=== PATIENT | female | born 1960 | race Caucasian/White ===

== ENCOUNTER → 2017-12-24 09:52 | Outpatient (CLI) | payer OTHER, SELFPAY ==
[2017-12-24 11:12] LABS: Free T3 3.1 pg/mL (2.18-3.98); T4 Free Direct 0.89 ng/dL (0.76-1.46); Thyroid Stim Hormone (TSH) 0.01 uIU/mL (0.358-3.74)
[2017-12-27 15:12] LABS: HPV Reflexed? NOT INDICATED
== END ==
PROVIDERS: Visit Provider Obstetrics & Gynecology
DX: Z12.4 Encounter for screening for malignant neoplasm of cervix (principal); R53.83 Other fatigue; Z12.72 Encounter for screening for malignant neoplasm of vagina
CPT/HCPCS: 36415; 84439; 84443; 84481; 88175; G0145

== ENCOUNTER 2018-01-27 20:26 | Observation (INO) | payer OTHER, SELFPAY ==
[2018-01-27] VITALS (9 sets, daily range): BP systolic 135–164; BP diastolic 74–98; PULSE 51–66; RESP 15–22; TEMP 36.4–36.7; O2SAT 95–99; BMI 31.7; BMI 29.7; BMI 29.8
--- NOTE | 2018-01-27 20:57 | EKG12_ITS ---
Test Reason : LEFT SIDED NUMBNESS Blood Pressure : / mmHG Vent. Rate : 062 BPM Atrial Rate : 062 BPM P-R Int : 168 ms QRS Dur : 104 ms QT Int : 408 ms P-R-T Axes : 033 025 047 degrees QTc Int : 414 ms Normal sinus rhythm Nonspecific ST abnormality Abnormal ECG Confirmed by MARIA DE JESUS POON, PERNELL ([id number]), editor sound SOLEDAD LOZA ([id number]) on 01/29/2018 3:00:14 PM Referred By: QUITA CULVER Confirmed By:PERNELL RPETTY MD
--- NOTE | 2018-01-27 20:57 | CT_ITS ---
STUDY: CT BRAIN WITHOUT CONTRAST REASON FOR EXAM: Female, 57 years old. Paresthesia RADIATION DOSAGE (If Supplied By Facility): CTDIvol = ( 44.99 ) mGy, DLP = ( 796.11 ) mGycm TECHNIQUE: Transaxial CT imaging of the brain was performed without administration of intravenous contrast material. Individualized dose optimization techniques were used for this CT. COMPARISON: None. FINDINGS: Normal soft tissue structures. Normal calvarium. Normal size ventricles and extra-axial spaces for the patient's age. Normal white matter tracts of the cerebral hemispheres. Normal basal ganglia and thalami. Normal brainstem. Normal cerebellum. There is no intracranial hemorrhage. There are no findings of an acute ischemic infarction. Normal visualized paranasal sinuses. CT/Brain/Head without Contrast IMPRESSION: Normal unenhanced CT scan of the brain. If acute infarct is clinically suspected, MRI may be helpful for further evaluation at this time. Electronically Signed: Jovany Pérez MD at 21:45 EDT , Service support ,
--- NOTE | 2018-01-27 20:57 | ED.VISSUMM ---
- ER Visit Summary Date of Service: 01/27/18 Chief Complaint: Paresthesias History of Present Illness: The patient is a 57 F sudden left upper and lower lip paresthesia at 6 [address] Symptoms resolved, went home and return. At 7 PM started having hand and feet paresthesias in the left side. Symptoms Subsided on arrival to the ED. No headache or visual changes. No hemiparesis. No chest pains or shortness of breath. No stroke history. No visual changes. No aspirin therapy. Patient states she was started on hormone replacement up Prempro a month ago for hot flashes. No family history of clotting disorders. Physical Examination: General: Alert and oriented ?3, no acute distress HEENT: Normocephalic, atraumatic. Moist mucosa membranes Neck: supple, nontender. Cardiovascular: Regular rate and rhythm, no murmurs Respiratory: Normal breath sounds, symmetric, no distress Abdomen: Soft, nontender, nondistended Extremities: Nontender, no edema, pulses intact ?4 Neuro: no focal neurological deficits. NIH currently 0. Test Results: EKG: Sinus rate of 62, no ST or T-wave changes. Blood glucose 119. Hemoglobin 0.7. Creatinine 0.88. INR 0.9. Troponin negative. CT head no acute process. Emergency Department Course and Treatment: Patient symptoms resolved. Bat B workup initiated. Results were negative. Patient remains asymptomatic. Patient recently placed on hormone therapy puts her at risk for potential clots. Will discuss with hospitalist for admission for stroke rule out. Reevaluation, symptoms did not return. Treatment Plan: [] Disposition: Admission Impression: Transient left facial and left-sided paresthesia This note was generated with [employer] dictation software. It may contain incorrect words, spelling, and punctuation that were not noted in review of the chart prior to signing ED Disposition - Plan for ED Patient: Disposition: Acute Care Hospital [facility] Chief Complaint: Numb/Ting Diagnosis: Transient paresthesias Referrals: NOT,DEFINED [NON-STAFF] -
[2018-01-27 21:16] LABS: Bedside Glucose 119 mg/dL (70-110)
[2018-01-27 21:18] LABS: Absolute Lymphocyte Count 3.49 X10^3/ul (0.83-4.51); Absolute Neutrophil Count 4.7 X10^3/uL (2.0-7.7); Basophil# 0.02 X10^3/uL; Basophil% 0.2 % (0-1); Eosinophil# 0.26 X10^3/uL; Eosinophils% 2.8 % (0-5); Hematocrit 35.4 % (37-47); Hemoglobin 11.7 g/dl (12.0-15.0); Lymphocyte # 3.49 X10^3/ul (4.0); Lymphocyte % 37.4 % (19-41); Mean Corp Hgb Conc 33.1 g/gl (32-36); Mean Corpuscular Volume 90.8 fL (81-99); Mean Platelet Vol. 9.5 fl (6.2-12.0); Monocyte# 0.84 X10^3/uL; Neutrophil % 50.4 % (47-70); Platelet Count 360 K/mm3 (150-450); RBC Distribution Width CV 12.4 % (11.6-14.6); RBC Distribution Width SD 40.7 fl (35.1-43.9); White Blood Count 9.3 K/mm3 (4.4-11.0)
[2018-01-27 21:24] LABS: International Normalized Ratio 0.9; POSITIVE COUNT NO; POSITIVE DIFFERENTIAL NO; POSITIVE MORPHOLOGY NO; Partial Thromboplast Time 30.2 Seconds (24.1-36.2); Prothrombin Time (Protime)PT. 12.3 SECONDS (11.7-14.9)
[2018-01-27 21:35] LABS: Anion Gap 8 (5-15); BUN 24 mg/dL (7-18); BUN/Creat Ratio 27.4 RATIO (10-20); Calcium,Total 8.8 mg/dL (8.5-10.1); Chloride 112 mmol/L (98-107); Creatinine, Serum 0.88 mg/dL (0.55-1.02); EST Glomerular Filtration Rate 70 mL/min (>60); Est Glom Filt Rate - Afr Amer 85 mL/min (>60); Estimated Creatinine Clearance 59.44 ml/min; Glucose 114 mg/dL (74-106); Potassium 3.9 mmol/L (3.5-5.1); Sodium Level 143 mmol/L (136-145)
--- NOTE | 2018-01-27 22:07 | PCM.HP.STD ---
Problem List (1) HTN (hypertension) Status: Chronic Qualifiers: Hypertension type: essential hypertension Qualified Code(s): I10 - Essential (primary) hypertension (2) GERD (gastroesophageal reflux disease) Status: Chronic Qualifiers: Esophagitis presence: esophagitis presence not specified Qualified Code(s): K21.9 - Gastro-esophageal reflux disease without esophagitis (3) Anxiety Status: Chronic (4) Insomnia Status: Chronic Qualifiers: Insomnia type: unspecified Qualified Code(s): G47.00 - Insomnia, unspecified (5) Chronic back pain Status: Chronic Qualifiers: Back pain location: back pain in unspecified location Back pain laterality: unspecified Qualified Code(s): M54.9 - Dorsalgia, unspecified; G89.29 - Other chronic pain (6) Obesity (BMI 30.0-34.9) Status: Acute (7) TIA (transient ischemic attack) Status: Acute Qualifiers: Transient cerebral ischemia type: unspecified Qualified Code(s): G45.9 - Transient cerebral ischemic attack, unspecified History of Present Illness Date of Admission: 01/27/18 Chief Complaint: L sided paresthesias 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 She does not take a daily baby ASA. She notes her manager file recently started her on premarin for hot flashes ~ 1 week prior. In the ED work-up included T 97.6, HR 66, BP 144/98, RR 16, 99% on RA, CBC w/ WBC 9.3, Hgb 11.7, Plts 360 without shift, normal coags, BMP w/ Chl 112, BUN/Cr 24/0.88, glucose 114, trop < 0.02, CT head without acute findings, EKG w/ SR. Past Medical History Past Medical History (Chronic Problems): Chronic Problems (Last Updated 10/07/17 @ 10:48 by Claudette Brothers) HTN (hypertension) (Chronic) GERD (gastroesophageal reflux disease) (Chronic) Anxiety (Chronic) Insomnia (Chronic) Chronic back pain (Chronic) Allergies No Known Allergies Allergy (Unverified 01/27/18 20:27) Home Medications: Ambulatory Orders Medication Instructions Recorded lorazepam 1 mg tablet 1 mg PO BID 10/07/17 trazodone 50 mg tablet 100 mg PO QHS PRN 10/07/17 Omeprazole [Prilosec] 20 mg PO DAILY 01/27/18 Surgical History: - - Cholecystectomy, bilateral tubal ligation, right foot surgery. Psychiatric History: Anxiety, Depression PARTS PROCESSOR History: No pertinent PARTS PROCESSOR history Lives: Spouse/ Significant Other Smoking Status: Former smoker - Quit approximately 7 years prior, [id number] history. Tobacco Use: Non-smoker Alcohol: None Drugs: None - *Family History Maternal History Items: - - Maternal family history of heart disease, hypertension, hypothyroidism. Paternal History Items: - - Paternal family history of suspected cerebral aneurysm in his 40s. Review of Systems Constitutional: Denies: Chills, Fever, Weight Change HEENT: Denies: Head Aches, Sinus Congestion, Sinus Drainage Cardiovascular: Denies: Chest Pain, Palpitations Respiratory: Denies: Cough, Shortness of breath at rest, Sputum production Gastrointestinal: Denies: Abdominal Pain, Nausea, Vomiting Genitourinary: Denies: Dysuria Gynecological: Reports: - - Hot flashes. Musculoskeletal: Reports: Back Pain. Denies: Joint Pain, Joint Tenderness Skin: Denies: Rash, Wounds Neurological: Denies: Numbness, Tingling, Focal weakness Psychiatric: Reports: Anxiety, Depression, - - Insomnia.. Denies: Homicidal Ideations, Suicidal Ideations Hematologic/ Lymphatic: Denies: Easy Bruising, Easy Bleeding VTE Information - Inpt Only VTE Present on Admission: No VTE Mechan Device Prophylaxis: SCD's VTE Pharm Prophylaxis ordered?: Yes Patient Problems: Active and Suspected Problems (Last Updated 10/07/17 @ 10:48 by Claudette Brothers) Obesity (BMI 30.0-34.9) (Acute) TIA (transient ischemic attack) (Acute) Subjective: Seated upright in the ED bed, NAD, NIHSS 0. Objective: Physical Examination: General: awake, alert, oriented x 3 and cooperative, seated upright in the ED bed in no apparent distress. Skin: normal color, turgor, no icterus, cyanosis. HEENT: AT/NC, EOMI, PERRLA, MMM, no carotid bruits or JVD noted. Lungs: CTA bilaterally, moderate effort, mild decrease BL bases, no rales, ronchi or wheezing. Heart: Regular rate and rhythm; no gallop, rub audible. Abdomen: soft, NTTP, ND, normal BS, no HSM. Extremities: no cyanosis, clubbing, or edema. Neurological: patient awake, alert, oriented x 3; cognitive function intact; pupils equally reactive to light and accomodation; cranial nerves II-XII grossly normal, moving all 4 extremities, no focal deficits, strength preserved, sensation intact, FTN and HTS intact, negative babinski. Psychiatric: affect appears normal, no acute evidence of depressive or anxiety feelings. - Physical Exam Vital Signs Temp Pulse Resp BP Pulse Ox 97.6 F L 63 16 140/74 H 97 01/27/18 20:30 01/27/18 21:54 01/27/18 21:54 01/27/18 21:54 01/27/18 21:54 Oxygen Delivery Method Room Air Weight: 184 lb 15.485 oz Body Mass Index (BMI) 31.7 Finger Stick Blood Glucose 119 Laboratory Tests Past 24 Hrs 01/27/18 01/27/18 01/27/18 20:42 20:42 20:42 WBC 9.3 RBC 3.90 L Hgb 11.7 L Hct 35.4 L MCV 90.8 MCH 30.0 MCHC 33.1 RDW 12.4 RDW Differential 40.7 Plt Count 360 MPV 9.5 Immature Gran % (Auto) 0.200 Neut % (Auto) 50.4 Lymph % (Auto) 37.4 Sabine % (Auto) 9.0 Eos % (Auto) 2.8 Baso % (Auto) 0.2 Absolute Neuts (auto) 4.7 Absolute Lymphs (auto) 3.49 Total Counted Not Reportable PT 12.3 INR 0.9 APTT 30.2 Sodium 143 Potassium 3.9 Chloride 112 H Carbon Dioxide 23.0 Anion Gap 8 BUN 24 H Creatinine 0.88 Estim Creat Clear Calc 59.44 Est GFR (MDRD) Af Amer 85 Est GFR (MDRD) Non-Af 70 BUN/Creatinine Ratio 27.4 H Glucose 114 H Calcium 8.8 Troponin I < 0.02 POC Glucose 01/27/18 21:06 POC Glucose 119 H Assessment/Plan Active and Suspected Problems (Last Updated 10/07/17 @ 10:48 by Claudette Brothers) Obesity (BMI 30.0-34.9) (Acute) TIA (transient ischemic attack) (Acute) 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 (1) L sided paresthesias concerning for TIA/CVA: In the ED work-up included unremarkable labs, CT head without acute findings, EKG SR. Will admit to PCU, will obtain MRI Brain, MRA Head and Neck, ECHO, PT/OT/Speech/Nutrition evaluation per protocol. Will monitor BP as not on regimen currently, will start ACEI low dose if remains above goal 140/90, initiate daily baby ASA, add statin pending AM FLP, fall precautions. Mag and TSH pending. Discontinue recently started premarin. HgBA1c pending as noted mildly elevated glucose. (2) Hypertension: Noted history, not on regimen. Will monitor BP as not on regimen currently, will start ACEI low dose if remains above goal 140/90, PRN hydralazine. (3) Anxiety and Depression, Insomnia: Continue home ativan regimen, given depressive history also may benefit from consideration SSRI/SNRI, continue home PRN q HS trazodone. (4) Chronic Back Pain: Position changes, fall precautions. (5) Obesity: Weight loss and lifestyle changes encouraged. (6) GERD: Famotidine. (7) Mild Hyperglycemia: Mildly elevated BS, pending HgbA1c. (8) DVT Prophylaxis: SCDs, lovenox. Code Visit OBSV E&M: 06239 Initial observation care L3
--- NOTE | 2018-01-27 22:17 | HP.PCM_ITS ---
Problem List (1) HTN (hypertension) Status: Chronic Qualifiers: Hypertension type: essential hypertension Qualified Code(s): I10 - Essential (primary) hypertension (2) GERD (gastroesophageal reflux disease) Status: Chronic Qualifiers: Esophagitis presence: esophagitis presence not specified Qualified Code(s) : K21.9 - Gastro-esophageal reflux disease without esophagitis (3) Anxiety Status: Chronic (4) Insomnia Status: Chronic Qualifiers: Insomnia type: unspecified Qualified Code(s): G47.00 - Insomnia, unspecified (5) Chronic back pain Status: Chronic Qualifiers: Back pain location: back pain in unspecified location Back pain laterality : unspecified Qualified Code(s): M54.9 - Dorsalgia, unspecified; G89.29 - Other chronic pain (6) Obesity (BMI 30.0-34.9) Status: Acute (7) TIA (transient ischemic attack) Status: Acute Qualifiers: Transient cerebral ischemia type: unspecified Qualified Code(s): G45.9 - Transient cerebral ischemic attack, unspecified History of Present Illness Date of Admission: 01/27/18 Chief Complaint: L sided paresthesias 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 She does not take a daily baby ASA. 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 In the ED work-up included T 97.6, HR 66, BP 144/98, RR 16, 99% on RA, CBC w/ WBC 9.3, Hgb 11.7, Plts 360 without shift, normal coags, BMP w/ Chl 112, BUN/Cr 24/0.88, glucose 114, trop < 0.02, CT head without acute findings, EKG w/ SR. Past Medical History Past Medical History (Chronic Problems): Chronic Problems (Last Updated 10/07/17 @ 10:48 by Claudette Brothers) HTN (hypertension) (Chronic) GERD (gastroesophageal reflux disease) (Chronic) Anxiety (Chronic) Insomnia (Chronic) Chronic back pain (Chronic) Allergies No Known Allergies Allergy (Unverified 01/27/18 20:27) Home Medications: Ambulatory Orders Medication Instructions Recorded lorazepam 1 mg tablet 1 mg PO BID 10/07/17 trazodone 50 mg tablet 100 mg PO QHS PRN 10/07/17 Omeprazole [Prilosec] 20 mg PO DAILY 01/27/18 Surgical History: - - Cholecystectomy, bilateral tubal ligation, right foot surgery. Psychiatric History: Anxiety, Depression DIRECTOR REGULATORY COMPLIANCE History: No pertinent DIRECTOR REGULATORY COMPLIANCE history Lives: Spouse/ Significant Other Smoking Status: Former smoker - Quit approximately 7 years prior, [id number] history. Tobacco Use: Non-smoker Alcohol: None Drugs: None - *Family History Maternal History Items: - - Maternal family history of heart disease, hypertension, hypothyroidism. Paternal History Items: - - Paternal family history of suspected cerebral aneurysm in his 40s. Review of Systems Constitutional: Denies: Chills, Fever, Weight Change HEENT: Denies: Head Aches, Sinus Congestion, Sinus Drainage Cardiovascular: Denies: Chest Pain, Palpitations Respiratory: Denies: Cough, Shortness of breath at rest, Sputum production Gastrointestinal: Denies: Abdominal Pain, Nausea, Vomiting Genitourinary: Denies: Dysuria Gynecological: Reports: - - Hot flashes. Musculoskeletal: Reports: Back Pain. Denies: Joint Pain, Joint Tenderness Skin: Denies: Rash, Wounds Neurological: Denies: Numbness, Tingling, Focal weakness Psychiatric: Reports: Anxiety, Depression, - - Insomnia.. Denies: Homicidal Ideations, Suicidal Ideations Hematologic/ Lymphatic: Denies: Easy Bruising, Easy Bleeding VTE Information - Inpt Only VTE Present on Admission: No VTE Mechan Device Prophylaxis: SCD's VTE Pharm Prophylaxis ordered?: Yes Patient Problems: Active and Suspected Problems (Last Updated 10/07/17 @ 10:48 by Claudette Brothers) Obesity (BMI 30.0-34.9) (Acute) TIA (transient ischemic attack) (Acute) Subjective: Seated upright in the ED bed, NAD, NIHSS 0. Objective: Physical Examination: General: awake, alert, oriented x 3 and cooperative, seated upright in the ED bed in no apparent distress. Skin: normal color, turgor, no icterus, cyanosis. HEENT: AT/NC, EOMI, PERRLA, MMM, no carotid bruits or JVD noted. Lungs: CTA bilaterally, moderate effort, mild decrease BL bases, no rales, ronchi or wheezing. Heart: Regular rate and rhythm; no gallop, rub audible. Abdomen: soft, NTTP, ND, normal BS, no HSM. Extremities: no cyanosis, clubbing, or edema. Neurological: patient awake, alert, oriented x 3; cognitive function intact; pupils equally reactive to light and accomodation; cranial nerves II-XII grossly normal, moving all 4 extremities, no focal deficits, strength preserved , sensation intact, FTN and HTS intact, negative babinski. Psychiatric: affect appears normal, no acute evidence of depressive or anxiety feelings. - Physical Exam Vital Signs Temp Pulse Resp BP Pulse Ox 97.6 F L 63 16 140/74 H 97 01/27/18 20:30 01/27/18 21:54 01/27/18 21:54 01/27/18 21:54 01/27/18 21:54 Oxygen Delivery Method Room Air Weight: 184 lb 15.485 oz Body Mass Index (BMI) 31.7 Finger Stick Blood Glucose 119 Laboratory Tests Past 24 Hrs 01/27/18 01/27/18 01/27/18 20:42 20:42 20:42 WBC 9.3 RBC 3.90 L Hgb 11.7 L Hct 35.4 L MCV 90.8 MCH 30.0 MCHC 33.1 RDW 12.4 RDW Differential 40.7 Plt Count 360 MPV 9.5 Immature Gran % (Auto) 0.200 Neut % (Auto) 50.4 Lymph % (Auto) 37.4 Dixie % (Auto) 9.0 Eos % (Auto) 2.8 Baso % (Auto) 0.2 Absolute Neuts (auto) 4.7 Absolute Lymphs (auto) 3.49 Total Counted Not Reportable PT 12.3 INR 0.9 APTT 30.2 Sodium 143 Potassium 3.9 Chloride 112 H Carbon Dioxide 23.0 Anion Gap 8 BUN 24 H Creatinine 0.88 Estim Creat Clear Calc 59.44 Est GFR (MDRD) Af Amer 85 Est GFR (MDRD) Non-Af 70 BUN/Creatinine Ratio 27.4 H Glucose 114 H Calcium 8.8 Troponin I < 0.02 POC Glucose 01/27/18 21:06 POC Glucose 119 H Assessment/Plan Active and Suspected Problems (Last Updated 10/07/17 @ 10:48 by Claudette Brothers) Obesity (BMI 30.0-34.9) (Acute) TIA (transient ischemic attack) (Acute) 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 (1) L sided paresthesias concerning for TIA/CVA: In the ED work-up included unremarkable labs, CT head without acute findings, EKG SR. Will admit to PCU, will obtain MRI Brain, MRA Head and Neck, ECHO, PT/OT/Speech/Nutrition evaluation per protocol. Will monitor BP as not on regimen currently, will start ACEI low dose if remains above goal 140/90, initiate daily baby ASA, add statin pending AM FLP, fall precautions. Mag and TSH pending. Discontinue recently started premarin. HgBA1c pending as noted mildly elevated glucose. (2) Hypertension: Noted history, not on regimen. Will monitor BP as not on regimen currently, will start ACEI low dose if remains above goal 140/90, PRN hydralazine. (3) Anxiety and Depression, Insomnia: Continue home ativan regimen, given depressive history also may benefit from consideration SSRI/SNRI, continue home PRN q HS trazodone. (4) Chronic Back Pain: Position changes, fall precautions. (5) Obesity: Weight loss and lifestyle changes encouraged. (6) GERD: Famotidine. (7) Mild Hyperglycemia: Mildly elevated BS, pending HgbA1c. (8) DVT Prophylaxis: SCDs, lovenox. Code Visit OBSV E&M: 14241 Initial observation care L3
--- NOTE | 2018-01-27 22:53 | ECHOD_ITS ---
Reason For Study: TIA/STROKE Procedure This was a 2D Doppler, Color Flow transthoracic echocardiogram. Exam performed portable in patient room. Left Ventricle Normal LV size. Left ventricular systolic function is normal. The estimated ejection fraction is 60 %. No evidence for diastolic dysfunction. No regional wall motion abnormalities noted. Right Ventricle Normal RV size. Normal systolic function. Atria Normal left atrium. Normal right atrium. Bubble contrast study negative for right to left interatrial shunt. Mitral Valve Normal mitral valve. Tricuspid Valve Normal tricuspid valve. Mild (1+) tricuspid valve insufficiency. Pulmonary artery systolic pressure is 33 mmHg. Aortic Valve Normal aortic valve. Trisinus/trileaflet aortic valve. Pulmonic Valve Normal pulmonic valve. Great Vessels Normal aortic root. The pulmonary artery is normal size. Normal inferior vena cava. Pericardium/Pleural No pericardial effusion. Medication Performed a rapid injection of agitated mix of 9 cc saline and 1cc air to assess for atrial septal defect. MMode/2D Measurements & Calculations LVIDd: 4.9 cm IVSd: 1.1 cm Ao root diam: 2.9 cm LVIDs: 2.9 cm LVPWd: 1.0 cm RVDd: 3.6 cm FS: 39.6 % LAV(MOD-bp): 54.6 ml EDV(MOD-sp4): 96.3 ml SV(MOD-sp4): 54.5 ml LAV(MOD-bp) Indexed: 28.9 ml/m2 ESV(MOD-sp4): 41.8 ml LAV(MOD-sp2): 62.0 ml EF(MOD-sp4): 56.6 % LAV(MOD-sp4): 45.6 ml LA A4 area: 18.0 cm2 RA A4 area: 17.0 cm2 Time Measurements MV dec time: 0.27 sec Doppler Measurements & Calculations MV E max abdi: 103.5 cm/sec Lat Peak E' Abdi: 17.9 cm/sec Med Peak E' Abdi: 18.0 cm/sec MV A max abdi: 69.9 cm/sec E/E' lat: 5.8 E/E' med: 5.8 MV E/A: 1.5 Ao V2 max: 210.2 cm/sec LV V1 max: 149.1 cm/sec PA V2 max: 90.4 cm/sec Ao max P.7 mmHg LV V1 max P.9 mmHg TR max abdi: 275.4 cm/sec TR max P.3 mmHg Interpretation Summary Normal LV size. Left ventricular systolic function is normal. The estimated ejection fraction is 60 %. No evidence for diastolic dysfunction. Mild (1+) tricuspid valve insufficiency. Bubble contrast study negative for right to left interatrial shunt. Ordering Physician: Babita Latham Referring Physician: N/A Performed By: Birgit Bush RDCS
[2018-01-27 23:27] LABS: Magnesium 2.1 mg/dL (1.6-2.6); Thyroid Stim Hormone (TSH) 0.03 uIU/mL (0.358-3.74)
[2018-01-27 23:30] LABS: Hemoglobin A1c 5.7 % (4.2-6.3)
[2018-01-27] MEDS: 0.9% Normal Saline 1,000 ML 100 ML IV (23:48)
[2018-01-28] VITALS (12 sets, daily range): BP systolic 105–140; BP diastolic 52–78; PULSE 46–62; RESP 16–18; TEMP 36.4–37; O2SAT 94–97; BMI 29.7
[2018-01-28] MEDS: Aspirin 81 MG TAB.CHEW PO ×2 (00:10→08:15)
[2018-01-28] MEDS: Famotidine 20 MG Tablet PO ×3 (00:10→21:05)
[2018-01-28 06:32] LABS: Hematocrit 32.4 % (37-47); Hemoglobin 10.6 g/dl (12.0-15.0); Mean Corp Hgb Conc 32.7 g/gl (32-36); Mean Corpuscular Hgb 29.9 pg (27.0-32.0); Mean Corpuscular Volume 91.5 fL (81-99); Mean Platelet Vol. 9.3 fl (6.2-12.0); Platelet Count 319 K/mm3 (150-450); RBC Distribution Width CV 12.4 % (11.6-14.6); RBC Distribution Width SD 40.5 fl (35.1-43.9); Red Blood Count 3.54 M/mm3 (4.2-5.4); White Blood Count 5.1 K/mm3 (4.4-11.0)
[2018-01-28 06:35] LABS: Scan Indicated on CBC? Y/N NO
[2018-01-28 06:48] LABS: Anion Gap 8 (5-15); BUN 20 mg/dL (7-18); BUN/Creat Ratio 29.5 RATIO (10-20); Calcium,Total 8.5 mg/dL (8.5-10.1); Chloride 114 mmol/L (98-107); Cholesterol 187 mg/dL (200); Creatinine, Serum 0.68 mg/dL (0.55-1.02); EST Glomerular Filtration Rate 94 mL/min (>60); Est Glom Filt Rate - Afr Amer 114 mL/min (>60); Estimated Creatinine Clearance 76.92 ml/min; Glucose 94 mg/dL (74-106); High Density Lipoprotein 51 mg/dL; Potassium 4.2 mmol/L (3.5-5.1); Sodium Level 144 mmol/L (136-145); Triglycerides 154 mg/dL; Very Low Density Lipoprotein 31 mg/dL (5-40)
[2018-01-28 08:38] LABS: T4 Free Direct 0.87 ng/dL (0.76-1.46); T4 Total, Thyroxin 7.6 ug/dL (4.8-13.9)
--- NOTE | 2018-01-28 10:23 | MRI_ITS ---
MR Brain W/O Contrast INDICATION: CVA, CVA, sudden onset numbness L face, arm , leg COMPARISON: None TECHNIQUE: Multiplanar multisequence MRI examination of the brain without contrast. FINDINGS: There is no evidence of restricted diffusion to suggest acute ischemia/infarction. Ventricular system is normal in size and symmetric. Cortical sulci, sylvian fissures, and basal cisterns are well seen. Cunningham-white matter junction is normal. Midline structures and craniocervical junction are normal. The cerebellopontine angles are normal and symmetric. Periventricular chronic ischemic microvascular white matter changes are minimal. 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 There is no evidence of parenchymal microhemorrhage, mass effect or midline shift, or abnormal extra-axial collection. Flow-voids of the nikolai of [place] vascularity are well seen. There is redemonstration of early confluence of the vertebral arteries to the basilar artery with large caliber of the proximal basilar artery, see MR angiogram report. The paranasal sinuses and mastooid air cells are clear. MRI/Brain without Contrast IMPRESSION: No evidence of acute infarct. Minimal periventricular chronic ischemic microvascular white matter changes. Abnormal appearance of the proximal basilar artery, see MR angiogram report for further detail. at 1336 Reported and signed by: Cassie Kwok MD Electronically Signed: Cassie Kwok MD at 13:34 EDT Tel , Service support ,
--- NOTE | 2018-01-28 10:24 | MRI_ITS ---
MRA Head W/O Contrast INDICATION: CVA, sudden onset numbness L face, arm , leg COMPARISON: None TECHNIQUE: MR angiogram of the [place] and 3-D [id number] technique with 3-D reformatted images. FINDINGS: There is positive flow related signal in the intracranial portions of the internal carotid arteries with symmetric supply to the anterior and middle cerebral arteries and their branching vessels. Posterior circulation demonstrates early confluence of the distal vertebral arteries to the basilar artery resulting in a large caliber proximal basilar artery with focal fenestration. The mid and distal portion of the basilar artery is normal in caliber. Basilar artery gives rise to both posterior cerebral arteries which demonstrate normal flow related signal. The right posterior communicating artery and the anterior communicator are patent. 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 Symmetric supply to anterior, middle, and posterior cerebral arteries without evidence of large vessel occlusion.. at 1332 Reported and signed by: Cassie Kwok MD Electronically Signed: Cassie Kwok MD at 13:30 EDT Tel , Service support ,
--- NOTE | 2018-01-28 10:24 | MRI_ITS ---
MRA Neck W/O Contrast INDICATION: CVA, CVA, sudden onset numbness L face, arm , leg COMPARISON: None TECHNIQUE: MR angiogram of the arterial structures of the neck without contrast and 2-D bxvx-yw-hbjvgk technique with 3-D reformatted images. FINDINGS: The aortic arch and origins of the common and vertebral arteries are not included in the [id number]-jb-[id number]. There is positive flow related signal in the mid and distal common carotid arteries. There are questionable luminal irregularities at the proximal internal carotid arteries with questionable mild luminal narrowing bilaterally, 40% on the left, 50% on the right. This may be artifact due to vessel angulation. The flow related signal in the internal carotid arteries is otherwise normal and symmetric. Posterior circulation demonstrates symmetric vertebral arteries to the level of the skull base. MRI/MRA Neck without Contrast IMPRESSION: Questionable luminal narrowing at the origins of the internal carotid arteries, could be due to vessel angulation (artifact), or arteriosclerotic disease. Consider further evaluation with CTA (CTA head and neck please). at 1339 Reported and signed by: Cassie Kwok MD Electronically Signed: Cassie Kwok MD at 13:38 EDT Tel , Service support ,
[2018-01-28] MEDS: LORazepam 1 MG Tablet PO ×2 (10:41→21:05)
[2018-01-28] MEDS: Enoxaparin 40 MG/0.4 ML Syringe SC (10:43)
[2018-01-28] MEDS: Acetaminophen 325 MG Tablet 650 MG PO ×2 (10:47→21:06)
--- NOTE | 2018-01-28 14:48 | PCM.PROGNOTE ---
Patient Problems: Active and Suspected Problems (Last Updated 10/07/17 @ 10:48 by Claudette Brothers) Obesity (BMI 30.0-34.9) (Acute) TIA (transient ischemic attack) (Acute) Subjective: Chief complaint: Follow-up after admission for TIA. Patient seen and examined. No acute events overnight. Today, she has no more numbness in her left side of her mouth, no numbness or tingling in the left upper or lower extremities. She denies any new symptoms. Vital signs are stable. - Physical Exam General: Alert, Oriented x3, Cooperative, No apparent distress HEENT: Atraumatic, PERRLA, EOMI Oral: Moist Mucosa, No Gingival or Mucosal Lesions/ Ulcerations Neck: Supple, No JVD, Negative Carotid Bruits, Trachea Midline, Thyroid Normal Size and Texture Lungs: Clear to auscultation, No rhonchi, No wheeze, No rales, Diminished Cardiovascular: Regular rate, Regular Rhythm, Normal S1, Normal S2, PMI Normal Abdomen: Bowel Sounds Present, Soft, Non Tender, Non-Distended, No Hepato-splenomegaly Extremities: No clubbing, No cyanosis, No edema Skin: No rashes, No breakdown Lymphatic: No Cervical, Supraclavicular, or Inguinal Adenopathy Neurological: Cranial nerves II-XII grossly intact, Motor Exam 5/5 strength throughout Psych/Mental Status: Normal Affect, Appropriate, Alert and oriented to time, place, person, mood and affect Vital Signs Temp Pulse Resp BP Pulse Ox 98.6 F 46 L 16 117/78 94 01/28/18 10:39 01/28/18 11:20 01/28/18 10:39 01/28/18 10:39 01/28/18 10:39 Oxygen Delivery Method Room Air Weight: 173 lb 8.061 oz Body Mass Index (BMI) 29.7 Intake and Output for Last 24 Hours 01/26/18 01/27/18 01/28/18 23:59 23:59 23:59 Intake Total 1065 / 1065 Balance 1065 / 1065 Laboratory Tests Past 24 Hrs 01/28/18 01/28/18 01/28/18 05:50 05:50 05:50 WBC 5.1 RBC 3.54 L Hgb 10.6 L Hct 32.4 L MCV 91.5 MCH 29.9 MCHC 32.7 RDW 12.4 RDW Differential 40.5 Plt Count 319 MPV 9.3 Sodium 144 Potassium 4.2 Chloride 114 H Carbon Dioxide 22.0 Anion Gap 8 BUN 20 H Creatinine 0.68 Estim Creat Clear Calc 76.92 Est GFR (MDRD) Af Amer 114 Est GFR (MDRD) Non-Af 94 BUN/Creatinine Ratio 29.5 H Glucose 94 Calcium 8.5 Triglycerides 154 Cholesterol 187 LDL Cholesterol 105 VLDL Cholesterol 31 HDL Cholesterol 51 Free T4 0.87 Thyroxine (T4) 7.6 Free T3 pg/dL 3.0 Clinical Impression(s) from Imaging Studies Brain CT 01/27/18 20:57 IMPRESSION: Normal unenhanced CT scan of the brain. If acute infarct is clinically suspected, MRI may be helpful for further evaluation at this time. Electronically Signed: Jovany Pérez MD at 21:45 EDT , Service support , Brain MRI 01/28/18 10:23 IMPRESSION: No evidence of acute infarct. Minimal periventricular chronic ischemic microvascular white matter changes. Abnormal appearance of the proximal basilar artery, see MR angiogram report for further detail. 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 Symmetric supply to anterior, middle, and posterior cerebral arteries without evidence of large vessel occlusion.. at 1331 Reported and signed by: Cassie Kwok MD Electronically Signed: Cassie Kwok MD at 13:30 EDT Tel , Service support , Neck MRA 01/28/18 10:24 IMPRESSION: Questionable luminal narrowing at the origins of the internal carotid arteries, could be due to vessel angulation (artifact), or arteriosclerotic disease. Consider further evaluation with CTA (CTA head and neck please). at 1339 Reported and signed by: Cassie Kwok MD Electronically Signed: Cassie Kwok MD at 13:38 EDT Tel , Service support , Medical Necessity - Tobacco Use Smoking Status: Former smoker Tobacco Use: Non-smoker Assessment/Plan Active and Suspected Problems (Last Updated 10/07/17 @ 10:48 by Claudette Brothers) Obesity (BMI 30.0-34.9) (Acute) TIA (transient ischemic attack) (Acute) This is a 57 years old female patient admitted because of left-sided paresthesias and she is being evaluated for TIA. #1 left side paresthesia/perioral and left upper and lower extremity paresthesia: Initial CT scan brain showed no acute infarction or hemorrhage. Patient symptoms improved. Her vital signs are stable. She is on aspirin and statins. MRI brain showed no evidence of acute infarction. MRA of the head revealed early confluence of the vertebral arteries to basilar artery with large caliber of the proximal basilar artery. CTA of the neck revealed questionable luminal narrowing at the origin of the internal carotid arteries. 2D echocardiogram showed ejection fraction of 60%, no evidence of diastolic dysfunction, no significant valvular disease and negative bubble contrast study for [id number]-[id number] shunt. Plan: Neurology consult. #2 anxiety/depression/insomnia: Continue trazodone and Lorazepam. #3 GERD: Continue Pepcid. #4 DVT prophylaxis: Subcu Lovenox. This note was generated with [employer] software. It may contain incorrect words, spelling, and punctuation that were not noted in checking the note before signing. Code Visit OBSV E&M: 85617 Subsequent observation care L2
--- NOTE | 2018-01-28 14:56 | PN_ITS ---
Patient Problems: Active and Suspected Problems (Last Updated 10/07/17 @ 10:48 by Claudette Brothers) Obesity (BMI 30.0-34.9) (Acute) TIA (transient ischemic attack) (Acute) Subjective: Chief complaint: Follow-up after admission for TIA. Patient seen and examined. No acute events overnight. Today, she has no more numbness in her left side of her mouth, no numbness or tingling in the left upper or lower extremities. She denies any new symptoms. Vital signs are stable. - Physical Exam General: Alert, Oriented x3, Cooperative, No apparent distress HEENT: Atraumatic, PERRLA, EOMI Oral: Moist Mucosa, No Gingival or Mucosal Lesions/ Ulcerations Neck: Supple, No JVD, Negative Carotid Bruits, Trachea Midline, Thyroid Normal Size and Texture Lungs: Clear to auscultation, No rhonchi, No wheeze, No rales, Diminished Cardiovascular: Regular rate, Regular Rhythm, Normal S1, Normal S2, PMI Normal Abdomen: Bowel Sounds Present, Soft, Non Tender, Non-Distended, No Hepato- splenomegaly Extremities: No clubbing, No cyanosis, No edema Skin: No rashes, No breakdown Lymphatic: No Cervical, Supraclavicular, or Inguinal Adenopathy Neurological: Cranial nerves II-XII grossly intact, Motor Exam 5/5 strength throughout Psych/Mental Status: Normal Affect, Appropriate, Alert and oriented to time, place, person, mood and affect Vital Signs Temp Pulse Resp BP Pulse Ox 98.6 F 46 L 16 117/78 94 01/28/18 10:39 01/28/18 11:20 01/28/18 10:39 01/28/18 10:39 01/28/18 10:39 Oxygen Delivery Method Room Air Weight: 173 lb 8.061 oz Body Mass Index (BMI) 29.7 Intake and Output for Last 24 Hours 01/26/18 01/27/18 01/28/18 23:59 23:59 23:59 Intake Total 1065 / 1065 Balance 1065 / 1065 Laboratory Tests Past 24 Hrs 01/28/18 01/28/18 01/28/18 05:50 05:50 05:50 WBC 5.1 RBC 3.54 L Hgb 10.6 L Hct 32.4 L MCV 91.5 MCH 29.9 MCHC 32.7 RDW 12.4 RDW Differential 40.5 Plt Count 319 MPV 9.3 Sodium 144 Potassium 4.2 Chloride 114 H Carbon Dioxide 22.0 Anion Gap 8 BUN 20 H Creatinine 0.68 Estim Creat Clear Calc 76.92 Est GFR (MDRD) Af Amer 114 Est GFR (MDRD) Non-Af 94 BUN/Creatinine Ratio 29.5 H Glucose 94 Calcium 8.5 Triglycerides 154 Cholesterol 187 LDL Cholesterol 105 VLDL Cholesterol 31 HDL Cholesterol 51 Free T4 0.87 Thyroxine (T4) 7.6 Free T3 pg/dL 3.0 Clinical Impression(s) from Imaging Studies Brain CT 01/27/18 20:57 IMPRESSION: Normal unenhanced CT scan of the brain. If acute infarct is clinically suspected, MRI may be helpful for further evaluation at this time. Electronically Signed: Jovany Pérez MD at 21:45 EDT , Service support , Brain MRI 01/28/18 10:23 IMPRESSION: No evidence of acute infarct. Minimal periventricular chronic ischemic microvascular white matter changes. Abnormal appearance of the proximal basilar artery, see MR angiogram report for further detail. 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 Symmetric supply to anterior, middle, and posterior cerebral arteries without evidence of large vessel occlusion.. at 1331 Reported and signed by: Cassie Kwok MD Electronically Signed: Cassie Kwok MD at 13:30 EDT Tel , Service support , Neck MRA 01/28/18 10:24 IMPRESSION: Questionable luminal narrowing at the origins of the internal carotid arteries, could be due to vessel angulation (artifact), or arteriosclerotic disease. Consider further evaluation with CTA (CTA head and neck please). at 1339 Reported and signed by: Cassie Kwok MD Electronically Signed: Cassie Kwok MD at 13:38 EDT Tel , Service support , Medical Necessity - Tobacco Use Smoking Status: Former smoker Tobacco Use: Non-smoker Assessment/Plan Active and Suspected Problems (Last Updated 10/07/17 @ 10:48 by Claudette Brothers) Obesity (BMI 30.0-34.9) (Acute) TIA (transient ischemic attack) (Acute) This is a 57 years old female patient admitted because of left-sided paresthesias and she is being evaluated for TIA. #1 left side paresthesia/perioral and left upper and lower extremity paresthesia : Initial CT scan brain showed no acute infarction or hemorrhage. Patient symptoms improved. Her vital signs are stable. She is on aspirin and statins. MRI brain showed no evidence of acute infarction. MRA of the head revealed early confluence of the vertebral arteries to basilar artery with large caliber of the proximal basilar artery. CTA of the neck revealed questionable luminal narrowing at the origin of the internal carotid arteries. 2D echocardiogram showed ejection fraction of 60%, no evidence of diastolic dysfunction, no significant valvular disease and negative bubble contrast study for right-to- left shunt. Plan: Neurology consult. #2 anxiety/depression/insomnia: Continue trazodone and Lorazepam. #3 GERD: Continue Pepcid. #4 DVT prophylaxis: Subcu Lovenox. This note was generated with [employer] software. It may contain incorrect words, spelling, and punctuation that were not noted in checking the note before signing. Code Visit OBSV E&M: 71964 Subsequent observation care L2
[2018-01-28] MEDS: traZODone 50 MG Tablet 100 MG PO (21:05)
[2018-01-28] MEDS: Atorvastatin Calcium 80 MG Tablet PO (21:05)
[2018-01-29] VITALS (8 sets, daily range): BP systolic 120–155; BP diastolic 66–90; PULSE 39–60; RESP 14–16; TEMP 36.4–36.9; O2SAT 95–97
[2018-01-29] MEDS: Aspirin 81 MG TAB.CHEW PO (07:45)
[2018-01-29] MEDS: LORazepam 1 MG Tablet PO (09:55)
[2018-01-29] MEDS: Famotidine 20 MG Tablet PO (09:56)
[2018-01-29 10:01] LABS: Bacteria 0 SEEN /hpf (None Seen); Mucous, Urine 0 SEEN /hpf (<or=2+); Red Blood Cells-Urine 0 SEEN /hpf (0-5); White Blood Cells 0 SEEN /hpf (0-5)
[2018-01-29 10:05] LABS: Color, Urine Yellow (Yellow); Glucose, Dipstick Normal (Normal); Ketone-Dipstick Negative (Negative); Leukocyte Esterase-Dipstick Negative /ul (Negative); Nitrite-Dipstick Negative (Negative); Occult Blood-Urine 150 /ul (Negative); Protein-Dipstick Negative (Negative); Urine Bilirubin Dipstick Negative (Negative); Urine Clarity Clear (Clear); Urine Urobilinogen Normal (Normal)
[2018-01-29 10:11] LABS: Squamous Epithelial Cells - UA 0-5 SEEN /hpf (5-10)
--- NOTE | 2018-01-29 10:33 | CON.PCM_ITS ---
Reason for Consult Date of Consultation: 01/29/18 Reason for Consultation: left sided numbness History of Present Illness: The patient is a 57 year old F right handed white female noted two days ago onset of left facial numbness and left hand and foot. mri preformed, no acute. also reports daily headache, worse with stress, also reports insomnia. reports insomnia worse with hot flashes, started prempro one month ago, helps sleep but still not sleeping well, takes ativan and trazadone. Sees Dr Rodriguez at [facility] for depression, bipolar, and anxiety. currently 6/10 which is average headache. takes tylenol 1000mg daily for headache as well as ibuprofen daily for headache. reports snoring, loud per . 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 work is stressful. frequent naps per . 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 She does not take a daily baby ASA. 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 In the ED work-up included T 97.6, HR 66, BP 144/98, RR 16, 99% on RA, CBC w/ WBC 9.3, Hgb 11.7, Plts 360 without shift, normal coags, BMP w/ Chl 112, BUN/Cr 24/0.88, glucose 114, trop < 0.02, CT head without acute findings, EKG w/ SR. Past Medical History Past Medical History (Chronic Problems): Chronic Problems (Last Updated 10/07/17 @ 10:48 by Claudette Brothers) HTN (hypertension) (Chronic) GERD (gastroesophageal reflux disease) (Chronic) Anxiety (Chronic) Insomnia (Chronic) Chronic back pain (Chronic) Allergies No Known Allergies Allergy (Unverified 01/27/18 20:27) Home Medications: Ambulatory Orders Medication Instructions Recorded lorazepam 1 mg tablet 1 mg PO QHS 10/07/17 trazodone 50 mg tablet 100 mg PO QHS PRN 10/07/17 Omeprazole [Prilosec] 20 mg PO DAILY 01/27/18 Surgical History: - - Cholecystectomy, bilateral tubal ligation, right foot surgery. Psychiatric History: Anxiety, Depression [employer]EL[employer] History: No pertinent [employer] history Lives: Spouse/ Significant Other Smoking Status: Former smoker Tobacco Use: Non-smoker Alcohol: None Drugs: None - *Family History Maternal History Items: - - Maternal family history of heart disease, hypertension, hypothyroidism. Paternal History Items: - - Paternal family history of suspected cerebral aneurysm in his 40s. Review of Systems Constitutional: Denies: Chills, Fever, Weight Change HEENT: Reports: Head Aches. Denies: Sinus Congestion, Sinus Drainage Cardiovascular: Denies: Chest Pain, Palpitations Respiratory: Denies: Cough, Shortness of breath at rest, Sputum production Gastrointestinal: Denies: Abdominal Pain, Nausea, Vomiting Genitourinary: Denies: Dysuria Musculoskeletal: Denies: Joint Pain, Joint Tenderness Skin: Denies: Rash, Wounds Neurological: Reports: Tingling. Denies: Focal weakness, Numbness Psychiatric: Denies: Anxiety, Depression, Homicidal Ideations, Suicidal Ideations Hematologic/ Lymphatic: Denies: Easy Bruising, Easy Bleeding Patient Problems: Active and Suspected Problems (Last Updated 10/07/17 @ 10:48 by Claudette Brothers) Obesity (BMI 30.0-34.9) (Acute) TIA (transient ischemic attack) (Acute) - Physical Exam General: Alert, Oriented x3, Cooperative HEENT: Atraumatic, PERRLA, EOMI, Normocephalic Neck: Supple, No JVD, Negative Carotid Bruits Lungs: Clear to auscultation, Normal air movement Cardiovascular: Regular rate, No murmurs Abdomen: Bowel Sounds Present, Soft, Non Tender Extremities: No edema, Capillary Refill Less than 3 Seconds Skin: No rashes, No breakdown Musculoskeletal: No Tenderness to Palpation of Joints or Extremities Neurological: Cranial nerves II-XII grossly intact Psych/Mental Status: Normal Affect, Appropriate Vital Signs Temp Pulse Resp BP Pulse Ox 36.7 C 58 L 14 129/74 H 97 01/29/18 09:58 01/29/18 09:58 01/29/18 09:58 01/29/18 09:58 01/29/18 09:58 Oxygen Delivery Method Room Air Weight: 78.7 kg Body Mass Index (BMI) 29.7 Intake and Output for Last 24 Hours 01/27/18 01/28/18 01/29/18 23:59 23:59 23:59 Intake Total 1625 / 1625 240 / 240 Balance 1625 / 1625 240 / 240 Laboratory Tests Past 24 Hrs 01/29/18 09:15 Urine Color Yellow Urine Clarity Clear Urine pH 7.0 Ur Specific [place] 1.010 Urine Protein Negative Urine Glucose (UA) Normal Urine Ketones Negative Urine Occult Blood 150 H Urine Nitrite Negative Urine Bilirubin Negative Urine Urobilinogen Normal Ur Leukocyte Esterase Negative Urine RBC 0 SEEN Urine WBC 0 SEEN Ur Squamous Epith Cells 0-5 SEEN Urine Bacteria 0 SEEN Urine Mucus 0 SEEN Current Home Med List Medication Instructions Recorded Confirmed Type lorazepam 1 mg tablet 1 mg PO QHS 10/07/17 01/27/18 History trazodone 50 mg tablet 100 mg PO QHS PRN 10/07/17 01/27/18 History Omeprazole [Prilosec] 20 mg PO DAILY 01/27/18 01/27/18 History prempro daily tylenol ibuprofen Current Medications Generic Name Dose Route Start Last Admin Trade Name Freq PRN Reason Stop Dose Admin Acetaminophen 650 mg 01/27/18 22:53 01/28/18 21:06 Tylenol PO 650 mg Q4H PRN PRN Administration Headache/Temp>99F Acetaminophen 650 mg 01/27/18 22:53 Tylenol RECTAL Q4H PRN PRN Headache/Temp>99F Acetaminophen 650 mg 01/27/18 22:53 Tylenol Liquid NG Q4H PRN PRN Headache/Temp>99F Al Hydroxide/Mg Hydroxide 30 ml 01/27/18 22:53 Mylanta Ii PO Q6H PRN PRN Gastric burning Aspirin 81 mg 01/27/18 22:53 01/29/18 07:45 Aspirin, Baby PO 81 mg DAILY@0800 [facility] Administration Atorvastatin Calcium 80 mg 01/28/18 22:00 01/28/18 21:05 Lipitor PO 80 mg QHS RUFINO Administration Enoxaparin Sodium 40 mg 01/28/18 10:00 01/28/18 10:43 Lovenox SC 40 mg DAILY@1000 RUFINO Administration Famotidine 20 mg 01/28/18 00:00 01/29/18 09:56 Pepcid PO 20 mg BID RUFINO Administration Hydralazine HCl 10 mg 01/27/18 22:53 Apresoline Iv IV Q4H PRN PRN SBP > 160 Lorazepam 1 mg 01/28/18 10:00 01/29/18 09:55 Ativan PO 1 mg BID RUFINO Administration Magnesium Hydroxide 30 ml 01/27/18 22:53 Milk Of Magnesia PO DAILY PRN Constipation Ondansetron HCl 4 mg 01/27/18 22:53 Zofran IV Q8H PRN PRN NAUSEA Promethazine HCl 12.5 mg 01/27/18 22:53 Phenergan IV Q6H PRN PRN NAUSEA/VOMITING Sodium Chloride 5 - 30 ml 01/27/18 23:07 IV UD PRN SALINE FLUSH Trazodone HCl 100 mg 01/27/18 22:53 01/28/18 21:05 Desyrel PO 100 mg QHS PRN Administration SLEEP mri reviewed, no acute mra reviewed, normal, likely fenestrated basilar, normal variant Assessment/Plan Active and Suspected Problems (Last Updated 10/07/17 @ 10:48 by Claudette Brothers) Obesity (BMI 30.0-34.9) (Acute) TIA (transient ischemic attack) (Acute) likely complex migraine, possible medication overuse, complicated by insomnia and stress outpt psg decrease nsaid use add daily migraine rx: trokendi 50mg daily fenestrated basilar artery: check CTA dc if ct ok
[2018-01-29] MEDS: Acetaminophen 325 MG Tablet 650 MG PO (10:54)
--- NOTE | 2018-01-29 11:48 | CT_ITS ---
STUDY: CTA OF THE BRAIN REASON FOR EXAM: Female, 57 years old. Left-sided paresthesia. Headaches. RADIATION DOSAGE (If Supplied By Facility): CTDIvol = ( 29.74 ) mGy, DLP = ( 1371.41 ) mGycm TECHNIQUE: CT angiography was performed with a multi-detector CT scanner. Data acquisition was obtained from the skull base through the vertex following intravenous administration of 100 ml of Isovue-370. MIP images were reconstructed from the axial data set. Post-processing of the angiographic images was performed, with multiplanar reformation and 3D reconstruction. Individualized dose optimization techniques were used for this CT. COMPARISON: None. FINDINGS: Calcifications seen in the palatine tonsils bilaterally. The left vertebral artery is noted in the right. The proximal portion of the basilar artery is enlarged. A linear defect is seen along the left lateral aspect of the proximal basilar artery. This may represent changes secondary to a 3.4 mm left-sided aneurysm. The mid and distal portion of the basilar artery is unremarkable. Normal bilateral petrous carotid arteries. Normal right cavernous carotid artery with a normal supraclinoid bifurcation. Normal left cavernous carotid artery with a normal supraclinoid bifurcation. Normal right A1 segments of the anterior cerebral artery. Normal left A1 segments of the anterior cerebral artery. Normal intact anterior communicating artery (ACOM). Normal bilateral A2 segments of the anterior cerebral arteries. Normal right M1 and M2 segments of the middle cerebral arteries, with a normal M1 bifurcation. Normal left M1 and M2 segments of the middle cerebral arteries, with a normal M1 bifurcation. Normal right posterior communicating artery (PCOM). Normal left posterior communicating artery (PCOM). Normal bilateral vertebral arteries. Normal basilar artery with a normal basilar bifurcation. The visualized bilateral superior cerebellar (SCA) arteries are normal. Normal bilateral P1, P2 and visualized P3 segments of the posterior cerebral arteries. There is no demonstrated aneurysm of the [place]. There is no demonstrated abnormality of the visualized brain. 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 Electronically Signed: Kvng Gutiérrez MD at 13:34 EDT Tel [phone], Service support ,
[2018-01-29] MEDS: Topiramate 25 MG Tablet PO (12:54)
--- NOTE | 2018-01-29 14:14 | PCM.DC ---
- Discharge Diagnoses Current Active Problems: Current Active and Chronic Problems (Last Updated 10/07/17 @ 10:48 by Claudette Brothers) HTN (hypertension) (Chronic) GERD (gastroesophageal reflux disease) (Chronic) Anxiety (Chronic) Insomnia (Chronic) Chronic back pain (Chronic) Obesity (BMI 30.0-34.9) (Acute) TIA (transient ischemic attack) (Acute) You will use the following diet at home:: Regular Your food should be the consistency of: Regular Discharge Activity: Return to Normal Activity Weight Bearing Status: Weight bearing as tolerated Call your doctor if you observe: Fever of 101 or Higher, Shortness of breath, Dizziness, Fainting spells, Chest pain, Increased palpitations (irregular heartbeat), Uncontrolled pain Allergies/Adverse Reactions: Allergies No Known Allergies Allergy (Unverified 01/27/18 20:27) Medications to take at Discharge lorazepam 1 mg tablet 1 mg PO QHS 10/07/17 trazodone 50 mg tablet 100 mg PO QHS PRN 10/07/17 Omeprazole [Prilosec] 20 mg PO DAILY 01/27/18 Aspirin [Aspirin, Baby] 81 mg PO DAILY@0800 #90 tab.chew 01/29/18 Atorvastatin Calcium [Lipitor] 20 mg PO QHS #90 tab 01/29/18 Topiramate [Topiramate ER] 50 mg PO DAILY #30 cap.spr.24 01/29/18 The following prescriptions were given: Aspirin [Aspirin, Baby] 81 mg PO DAILY@0800 #90 tab.chew Atorvastatin Calcium [Lipitor] 20 mg PO QHS #90 tab Topiramate [Topiramate ER] 50 mg PO DAILY #30 cap.spr.24 Primary Care Physician: NOT,DEFINED [NON-STAFF] - Please follow up with your Primary Care Physician in: 1 WEEK. Please Follow Up With: Yinka Richard MD When: 4 WEEKS.
--- NOTE | 2018-01-29 16:19 | DS.PCM_ITS ---
Discharge Date and Diagnosis Date of Admission: 01/27/18 Date of Discharge: 01/29/18 - Primary Discharge Diagnosis #1 probable complex migraine. #2 questionable TIA. #3 fenestrated basilar artery. - Secondary Discharge Diagnosis Chronic Problems (Last Updated 10/07/17 @ 10:48 by Claudette Brothers) HTN (hypertension) (Chronic) GERD (gastroesophageal reflux disease) (Chronic) Anxiety (Chronic) Insomnia (Chronic) Chronic back pain (Chronic) Hospital Course and Treatment Imaging Results: 01/29/18 11:48 CTA Head W/WO Contrast [CT] Routine Clinical Impression(s) from Imaging Studies Brain CT 01/27/18 20:57 IMPRESSION: Normal unenhanced CT scan of the brain. If acute infarct is clinically suspected, MRI may be helpful for further evaluation at this time. Electronically Signed: Jovany Pérez MD at 21:45 EDT , Service support , Brain MRI 01/28/18 10:23 IMPRESSION: No evidence of acute infarct. Minimal periventricular chronic ischemic microvascular white matter changes. Abnormal appearance of the proximal basilar artery, see MR angiogram report for further detail. 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 Symmetric supply to anterior, middle, and posterior cerebral arteries without evidence of large vessel occlusion.. at 1330 Reported and signed by: Cassie Kwok MD Electronically Signed: Cassie Kwok MD at 13:30 EDT Tel , Service support , Neck MRA 01/28/18 10:24 IMPRESSION: Questionable luminal narrowing at the origins of the internal carotid arteries, could be due to vessel angulation (artifact), or arteriosclerotic disease. Consider further evaluation with CTA (CTA head and neck please). at 1339 Reported and signed by: Cassie Kwok MD Electronically Signed: Cassie Kwok MD at 13:38 EDT Tel , Service support , Head CTA 01/29/18 11:48 IMPRESSION: Enlargement of the proximal portion of the basilar artery with a linear defect suggestive of possible aneurysm arising from the left side of the proximal portion of the basilar artery measuring 3.5 mm. Electronically Signed: Kvng Gutiérrez MD at 13:34 EDT Tel [phone], Service support , Dr. Richard, neurology. Procedures: 2-D Echocardiogram, EKG Summary of Care Provided: Patient seen and examined on the day of discharge and appeared to be stable to be discharged home. She denies any more numbness or tingling in her left upper or lower extremities but she complained of minimal numbness on the left corner of her mouth. She denies focal motor weakness. Vital signs are stable, relatively bradycardic. - Physical Exam General: Alert, Oriented x3, Cooperative, No apparent distress. HEENT: Atraumatic, PERRLA, EOMI. Neck: Supple, No JVD, Negative Carotid Bruits, Trachea Midline, Thyroid Normal. Lungs: Clear to auscultation, Normal air movement, No rhonchi, No wheeze, No rales. Cardiovascular: Regular rate, Regular Rhythm, Normal S1, Normal S2, PMI Normal. Abdomen: Bowel Sounds Present, Soft, Non Tender, Non-Distended, No Hepato- splenomegaly. Extremities: No clubbing, No cyanosis, No edema Skin: No rashes, No breakdown Neurological: Neuro grossly intact Vital Signs are stable. Hospital course: This is a 57 years old female patient presented to the emergency room because of left side paresthesia and paresthesia of the left corner of her mouth. She underwent TIA/stroke workup that was negative for acute stroke or infarction. CT scan brain showed no acute infarction or hemorrhage. MRI brain showed no evidence of acute infarct. MRA of the head revealed. The confluence of the vertebral arteries to basilar artery with large caliber of the proximal basilar artery. MRA of the neck revealed questionable luminal narrowing at the origin of the internal carotid arteries, 40% in the left and 50% on the right. 2D echocardiogram revealed ejection fraction of 60%, no significant valvular heart disease and negative bubble contrast study for right to left shunt. Her routine blood work was remarkable for chronic anemia with stable hemoglobin, otherwise normal. Her lipid profile revealed normal total cholesterol as well as HDL LDL cholesterol. Consulted and recommended CTA of the head That revealed enlargement of the proximal portion of the basilar artery with linear defect suggestive of possible aneurysm measuring about 3.5 mm. After discussion with neurology who stated that the CTA head looked fine, patient discharged home in a stable condition. Dr. Richard recommended that patient may have complex migraine and started on Topamax. Her TSH was low at 0.03. Patient denies any symptoms suggestive of hypothyroidism. Actually she was bradycardic, heart rate has been in the 50s and she was asymptomatic. Her free T4, total T4 and free T3 were normal. His thyroid examination was normal, no nodules or masses. Patient discharged home in a stable medical condition, discharged on Topamax for possible complex migraine, discharged on aspirin and statins, continued on Ativan and trazodone, patient will need follow-up on her TSH that should be repeated in 2-4 weeks, follow-up with PCP in 1 week and follow-up with neurology in 4 weeks. Discharge Activity: Return to Normal Activity Weight Bearing Status: Weight bearing as tolerated Call your doctor if you observe: Fever of 101 or Higher, Shortness of breath, Dizziness, Fainting spells, Chest pain, Increased palpitations (irregular heartbeat), Uncontrolled pain Home Medications: Medications to take at Discharge lorazepam 1 mg tablet 1 mg PO QHS 12/24/17 trazodone 50 mg tablet 100 mg PO QHS PRN 10/07/17 Omeprazole [Prilosec] 20 mg PO DAILY 01/27/18 Aspirin [Aspirin, Baby] 81 mg PO DAILY@0800 #90 tab.chew 01/29/18 Atorvastatin Calcium [Lipitor] 20 mg PO QHS #90 tab 01/29/18 Topiramate [Topiramate ER] 50 mg PO DAILY #30 cap.spr.24 01/29/18 Following Prescrptions Were Given to Patient: Aspirin [Aspirin, Baby] 81 mg PO DAILY@0800 #90 tab.chew Atorvastatin Calcium [Lipitor] 20 mg PO QHS #90 tab Topiramate [Topiramate ER] 50 mg PO DAILY #30 cap.spr.24 Primary Care Physician: NOT,DEFINED [NON-STAFF] - Please follow up with your Primary Care Physician in: 1 WEEK. Please Follow Up With: Yinka Richard MD When: 4 WEEKS. Disposition: Home Minutes spent on discharge:: 26 Patient Condition:: Stable Medical Necessity - Tobacco Use Smoking Status: Former smoker Tobacco Use: Non-smoker Meaningful Use Info Meaningful Use Diagnoses (Choose all that apply): None applicable Code Visit OBSV E&M: 53265 Observation care discharge
== END 2018-01-29 14:15 | disposition home or self-care (01) ==
LOC: ED 22:19 → PCU 22:28
PROVIDERS: Admitting Provider Family Medicine; Emergency Provider Emergency Medicine; Visit Provider Hospitalist
DX: R20.2 Paresthesia of skin (principal); E66.9 Obesity, unspecified; F41.9 Anxiety disorder, unspecified; F32.9 Major depressive disorder, single episode, unspecified; G47.00 Insomnia, unspecified; K21.9 Gastro-esophageal reflux disease without esophagitis; I10 Essential (primary) hypertension; G89.29 Other chronic pain; M54.9 Dorsalgia, unspecified; Z79.899 Other long term (current) drug therapy; Z68.29 Body mass index [BMI] 29.0-29.9, adult; Z71.3 Dietary counseling and surveillance; Z87.891 Personal history of nicotine dependence; R73.9 Hyperglycemia, unspecified
CPT/HCPCS: 36415; 70450; 70496; 70544; 70547; 70551; 80048; 80061; 81001; 82962; 83036; 83735; 84436; 84439; 84443; 84481; 84484; 85025; 85027; 85610; 85730; 87086; 87088; 93005; 93306; 96360; 96361; 96372; 97161; 97165; 97802; 99218; 99285; J7030; Q9967; A4216; G0378

== ENCOUNTER → 2018-02-18 09:55 | Outpatient (CLI) | payer OTHER, SELFPAY ==
[2018-02-18 16:39] LABS: Free T3 4.3 pg/mL (2.18-3.98); T4 Free Direct 1.28 ng/dL (0.76-1.46); Thyroid Stim Hormone (TSH) < 0.01 uIU/mL (0.358-3.74)
== END ==
PROVIDERS: Visit Provider Obstetrics & Gynecology
DX: E03.9 Hypothyroidism, unspecified (principal); R94.6 Abnormal results of thyroid function studies
CPT/HCPCS: 36415; 84439; 84443; 84481

== ENCOUNTER → 2018-03-26 20:00 | Outpatient (CLI) | payer OTHER, SELFPAY | PROVIDERS: Visit Provider Nurse Practitioner Acute Care | DX: G47.33 Obstructive sleep apnea (adult) (pediatric) (principal); R06.83 Snoring; R51 Headache | CPT/HCPCS: 95810 ==

== ENCOUNTER → 2019-08-22 | Outpatient (CLI) | payer OTHER, SELFPAY | END | disposition home or self-care (01) | PROVIDERS: Family Provider Family Medicine; PCP Family Medicine; Referring Provider Nurse Practitioner Family; Visit Provider Nurse Practitioner Family | DX: G47.33 Obstructive sleep apnea (adult) (pediatric) (principal) | CPT/HCPCS: 95810 ==

== ENCOUNTER → 2019-11-18 | Outpatient (CLI) | payer OTHER, SELFPAY | END | disposition home or self-care (01) | LOC: SL 20:31 | PROVIDERS: PCP Family Medicine; Referring Provider Nurse Practitioner Family; Visit Provider Nurse Practitioner Family | DX: G47.33 Obstructive sleep apnea (adult) (pediatric) (principal) | CPT/HCPCS: 95811 ==

== ENCOUNTER → 2019-11-24 | Outpatient (CLI) | payer OTHER, SELFPAY ==
[2018-01-28 22:39] VITALS: BMI 29.7
--- NOTE | 2019-11-24 07:50 | CT_ITS ---
STUDY: CTA OF THE BRAIN REASON FOR EXAM: Female, 59 years old. Brain aneurysm follow up, thickening of basilar artery. Hx hypertension, thyroid cancer with removal. RADIATION DOSAGE (If Supplied By Facility): CTDIvol = ( 27.93 ) mGy, DLP = ( 1200.01 ) mGycm TECHNIQUE: Noncontrasted head CT examination performed. CT angiography was performed with a multi-detector CT scanner. Data acquisition was obtained from the skull base through the vertex following intravenous administration of IV 100mL Isovue-370. MIP images were reconstructed from the axial data set. Post-processing of the angiographic images was performed, with multiplanar reformation and 3D reconstruction. Individualized dose optimization techniques were used for this CT. COMPARISON: 01/29/2018 FINDINGS: The proximal portion of the basilar artery is enlarged (5 mm). A linear defect is seen along the left lateral aspect of the proximal basilar artery, with unchanged 3.5 mm localized prominence along the left side of the basilar artery (image 33 of series 3), stable since the prior study. In addition, this has not changed significantly since 01/28/2018 brain MRA. The mid and distal portion of the basilar artery is unremarkable. Normal bilateral petrous carotid arteries. Normal right cavernous carotid artery with a normal supraclinoid bifurcation. Normal left cavernous carotid artery with a normal supraclinoid bifurcation. Normal right A1 segments of the anterior cerebral artery. Normal left A1 segments of the anterior cerebral artery. Normal intact anterior communicating artery (ACOM). Normal bilateral A2 segments of the anterior cerebral arteries. Normal right M1 and M2 segments of the middle cerebral arteries, with a normal M1 bifurcation. Normal left M1 and M2 segments of the middle cerebral arteries, with a normal M1 bifurcation. 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 There is non-visualization of the left posterior communicating artery (PCOM). Normal bilateral vertebral arteries. Normal basilar artery with a normal basilar bifurcation. The visualized bilateral superior cerebellar (SCA) arteries are normal. Normal bilateral P1, P2 and visualized P3 segments of the posterior cerebral arteries. There is no demonstrated aneurysm of the [place]. Ventricular system is normal for age. No masses, mass effects or shifts of midline structures. No acute hemorrhage, obvious infarction or abnormal collection of extra-axial fluid. Calvarium and extracranial soft tissues are normal. CT/CTA Head W/WO Contrast IMPRESSION: 1. Since 01/29/2018, stable exam. 2. 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 No intracranial aneurysm identified. Electronically Signed: Dillan De Los Santos MD (Brooks) at 13:43 EST , Service support ,
[2019-11-24 08:00] LABS: CREATININE FINGERSTICK 1.2 mg/dL (0.55-1.02)
== END | disposition home or self-care (01) ==
LOC: CT 07:48
PROVIDERS: PCP Family Medicine; Referring Provider Nurse Practitioner Family; Visit Provider Nurse Practitioner Family
DX: I72.9 Aneurysm of unspecified site (principal)
CPT/HCPCS: 70496; Q9967

== ENCOUNTER → 2019-12-17 08:59 | Outpatient (CLI) | payer OTHER, SELFPAY ==
[2018-01-28 22:39] VITALS: BMI 29.7
[2019-12-17 12:20] LABS: Absolute Neutrophil Count 2.9 X10^3/uL (2.0-7.7); Basophil# 0.04 X10^3/uL; Basophil% 0.7 % (0-1); Eosinophils% 1.6 % (0-5); Hematocrit 38.2 % (37-47); Hemoglobin 12.1 g/dL (12.0-15.0); Lymphocyte % 41.1 % (19-41); Mean Corp Hgb Conc 31.7 g/dL (32-36); Mean Corpuscular Hgb 29.4 pg (27.0-32.0); Mean Corpuscular Volume 92.9 fL (81-99); Mean Platelet Vol. 9.8 fl (6.2-12.0); Monocyte# 0.52 X10^3/uL; Monocyte% 8.6 % (0-10); NRBC Flagged by Analyzer 0 % (0-5); Neutrophil # 2.91 X10^3/uL (2.7-7.7); Neutrophil % 47.8 % (47-70); Platelet Count 399 K/mm3 (150-450); RBC Distribution Width CV 13.2 % (11.6-14.6); RBC Distribution Width SD 45.1 fl (35.1-43.9); Red Blood Count 4.11 M/mm3 (4.2-5.4); White Blood Count 6.1 K/mm3 (4.4-11.0)
[2019-12-17 13:27] LABS: ALB/GLOB Ratio 1.2 RATIO (0.9-2.4); AST(SGOT) 17 U/L (15-37); Alanine Aminotransfer ALT/SGPT 26 U/L (13-56); Albumin, Serum 3.7 g/dL (3.2-5.0); Alkaline Phosphatase 75 U/L (45-117); Anion Gap 6 (5-15); BUN 28 mg/dL (7-18); BUN/Creat Ratio 32.5 RATIO (10-20); Calcium,Total 9.2 mg/dL (8.5-10.1); Chloride 109 mmol/L (98-107); Cholesterol 156 mg/dL (200); Creatinine, Serum 0.86 mg/dL (0.55-1.02); EST Glomerular Filtration Rate 71 mL/min (>60); Est Glom Filt Rate - Afr Amer 86 mL/min (>60); Globulin 3.1 g/dL (2.2-4.2); Glucose 104 mg/dL (74-106); High Density Lipoprotein 77 mg/dL; Potassium 4.2 mmol/L (3.5-5.1); Protein, Total 6.8 g/dL (6.4-8.2); Sodium Level 141 mmol/L (136-145); Thyroid Stim Hormone (TSH) 0.64 uIU/mL (0.358-3.74); Triglycerides 52 mg/dL; Very Low Density Lipoprotein 10 mg/dL (5-40)
[2019-12-17 14:35] LABS: CPK Total, Creatine Kinase 79 U/L (26-192)
[2019-12-17 14:41] LABS: Magnesium 1.9 mg/dL (1.6-2.6)
[2019-12-17 16:52] LABS: Vitamin B12 907 pg/mL (211-911); Vitamin D,25 Hydroxy 57.4 ng/mL
== END ==
PROVIDERS: PCP Family Medicine; Visit Provider Family Medicine
DX: I10 Essential (primary) hypertension (principal); E78.00 Pure hypercholesterolemia, unspecified; E03.2 Hypothyroidism due to medicaments and other exogenous substances; R25.2 Cramp and spasm
CPT/HCPCS: 36415; 80053; 80061; 82306; 82550; 82607; 83735; 84443; 85025

== ENCOUNTER → 2020-02-17 | Outpatient (CLI) | payer OTHER, SELFPAY ==
[2018-01-28 22:39] VITALS: BMI 29.7
--- NOTE | 2020-02-17 16:50 | RAD_ITS ---
STUDY: X-RAY - PELVIS AND LEFT HIP REASON FOR EXAM: Female, 59 years old. left hip/ pelvis pain TECHNIQUE: 3 views of the pelvis and hip. COMPARISON: None. FINDINGS: There is a normal bowel gas pattern. There are multiple calcified phleboliths. Normal bilateral iliac wings, sacroiliac joints and visualized sacrum. Normal bilateral superior and inferior pubic rami. There are degenerative changes of the pubic symphysis with articular narrowing and sclerosis. Normal bilateral ischial tuberosities. Normal visualized femoral head. Normal acetabulum. Normal hip joint. There is no acute fracture. RAD/HIP, UNI W/ Pelvis 2-3 Views IMPRESSION: No fracture seen. Electronically Signed: Remberto Whatley MD at 17:33 EDT , Service support ,
== END | disposition home or self-care (01) ==
LOC: MTRAD 16:49
PROVIDERS: PCP Family Medicine; Referring Provider Family Medicine; Visit Provider Family Medicine
DX: M25.552 Pain in left hip (principal)
CPT/HCPCS: 73502

== ENCOUNTER → 2020-03-01 | Outpatient (CLI) | payer OTHER, SELFPAY ==
[2020-03-01 10:19] VITALS: BMI 29.7
--- NOTE | 2020-03-01 10:46 | RAD_ITS ---
STUDY: X-RAY - LEFT FEMUR REASON FOR STUDY: Female, 59 years old. LEG PAIN AFTER FALLING TWICE TECHNIQUE: 2 view(s) of the femur. COMPARISON: None. FINDINGS: Normal visualized femur. Normal visualized soft tissue structure. RAD/Femur Min 2 Views IMPRESSION: Normal x-ray examination of the femur. Electronically Signed: Franklyn Cardenas MD at 17:13 EDT , Service support ,
== END | disposition home or self-care (01) ==
LOC: HPRAD 10:46
PROVIDERS: PCP Family Medicine; Referring Provider Physician Assistant; Visit Provider Physician Assistant
DX: M79.605 Pain in left leg (principal)
CPT/HCPCS: 73552

== ENCOUNTER → 2020-12-02 | Outpatient (CLI) | payer OTHER, SELFPAY ==
[2020-11-17 08:44] VITALS: BMI 30.9
--- NOTE | 2020-12-01 08:30 | LIP_PTH ---
PATIENT: MANUEL LOVE LOC: [facility] U#:[id number] AGE/SX: 60/F ROOM: RE12/02/[address]: Dr. Christ Baker MD : 1960 BED: DIS: 12/02/2020 SPEC #: [id number] RECD: 12/01/20 15:40 STATUS: LIZETH ALICIA #: [id number] DON: 12/01/20 08:[address]: Christ Baker DEPT: SURGICAL PATHOLOGY RECD BY: Michaelle Stallworth ENTERED: 12/02/20 12:51 SP TYPE: LIPOMA OTHR DR: Dr. Tessie Wilkinson MD Tissues: Soft tissues, NOS Procedures: Surgery Specimen Level III HEADER OPERATION: Excision of lipoma left shoulder PRE-OP DIAGNOSIS: Left shoulder lipoma TISSUE SUBMITTED: Left shoulder lipoma MICROSCOPIC DIAGNOSIS Soft tissue mass of left shoulder, excision: Mature adipose tissue consistent with lipoma. AM:carolynn 12/03/2020 MICROSCOPIC DESCRIPTION Slides are reviewed. GROSS DESCRIPTION Received in fixative is one container labeled with the patient's name and designated left shoulder lipoma. The specimen consists of multiple irregular fragments of sharma-yellow fatty tissue that in aggregate measure 6.5 x 5 x 1.5 cm. Serial sections reveal homogenous yellow cut surfaces. Manager Air sections are submitted in three cassettes. / AM:carolynn 12/02/20 TC:1 CPT: 33418
== END | disposition home or self-care (01) ==
LOC: LABSPEC 12:48
PROVIDERS: PCP Family Medicine; Visit Provider Surgery
DX: D17.22 Benign lipomatous neoplasm of skin and subcutaneous tissue of left arm (principal)
CPT/HCPCS: 88304

== ENCOUNTER → 2020-12-29 | Outpatient (CLI) | payer OTHER, SELFPAY ==
[2020-11-17 08:44] VITALS: BMI 30.9
[2021-01-04 03:07] LABS: Age Gdln ACOG Testing 30-65 (.)
[2021-01-04 09:55] LABS: HPV APTIMA, High Risk Negative (Negative)
[2021-01-04 09:56] LABS: HPV Reflexed? YES, CHARGE PATIENT
== END | disposition home or self-care (01) ==
LOC: LABSPEC 15:23
PROVIDERS: PCP Family Medicine; Visit Provider Family Medicine
DX: Z12.4 Encounter for screening for malignant neoplasm of cervix (principal)
CPT/HCPCS: 87624; 88175; G0145

== ENCOUNTER 2021-07-10 19:11 | Emergency (ER) | payer OTHER, SELFPAY ==
[2021-07-10 19:12] VITALS: BP 167/94; PULSE 86; RESP 16; TEMP 36.1; O2SAT 99; BMI 32.5
--- NOTE | 2021-07-10 19:23 | CT_ITS ---
We are attempting to reach an attending provider to discuss findings. An addendum with communication details will be sent when the communication is complete. INDICATION: abd pain EXAMINATION: CT ABDOMEN AND PELVIS WITH CONTRAST - CT Abdomen And Pelvis W/ Contrast Injection TECHNIQUE: Helically acquired images were obtained of the abdomen and pelvis following IV contrast. A radiation dose optimization technique was used for this scan. IV Contrast dosage and agent: 100 mL of ISOVUE-370. CTDI vol of 17.62 mGy. Dose Length Product of 1998.57 mGy*cm Oral contrast: None. COMPARISON: None. FINDINGS: LOWER CHEST: Minimal lower lobe atelectasis. No cardiomegaly or pericardial effusion. LIVER: Homogeneous. No focal mass. GALLBLADDER AND BILIARY TREE: There is intrahepatic biliary ductal dilation and dilated common bile duct measuring 16 mm in diameter. There is somewhat abrupt tapering of the dilated duct at the level of the pancreas with no visible mass. PANCREAS: 12 mm focal fluid density in the uncinate process and some atrophy pancreatic head. No pancreatic ductal dilation. No adjacent inflammatory changes. SPLEEN: Normal size without focal cystic or solid mass. ADRENAL GLANDS: Left adrenal nodule, 11 mm in diameter without fat density. KIDNEYS AND URETERS: Normal renal size and position. No hydronephrosis. PERITONEUM: No ascites or free air. No other fluid collection. BOWEL: No evidence of acute appendicitis. Small sliding hiatal hernia. Diverticulosis sigmoid colon with no evidence of diverticulitis. LYMPH NODES: No enlarged mesenteric or retroperitoneal lymph nodes. VESSELS: Extensive intimal calcifications L aorta and iliac branch vessels without significant luminal stenosis suggested. URINARY BLADDER: Unremarkable. REPRODUCTIVE ORGANS: Uterus and ovaries are normal in appearance. ABDOMINAL WALL: No discrete abdominal or pelvic wall hernia. BONES: No lytic or blastic abnormality. Significant lower lumbar spine degenerative disc and endplate changes as well as facet arthropathy appears to result in central canal and neural foraminal narrowing. No fracture. No vertebral body height loss. There is asymmetric subcortical sclerosis and cystic changes right sacroiliac joint compared to the left. CT/Abdomen/Pelvis W IV Cont ONLY IMPRESSION: Intra and extrahepatic biliary ductal dilation. 12 mm fluid density uncinate process likely representing a cyst. Correlation with laboratory values to assess for evidence of bile duct obstruction. Consider MRCP and MRI pancreas. Small sliding hiatal hernia. Diverticulosis without diverticulitis. Atherosclerosis and degenerative changes spine as above. Electronically Signed: Román Arcos DO at 21:39 EDT Tel , Service support ,
--- NOTE | 2021-07-10 19:24 | EDS_ITS ---
HPI HPI - GI History of Present Illness Chief Complaint: Nausea/Vomiting Informant: patient Abdominal Pain/Flank Pain Onset: Days Context: Gradual Onset Timing: Continuous Quality: Aching and Dull Location: Diffuse Current Severity: Mild Maximum Severity: Mild Worsened by: Nothing Relieved by: Food Nausea/Vomiting/Emesis GI Symptom: Positive for Nausea and Vomiting Onset: Today and Yesterday Severity: Mild Diarrhea/Melena/Hematochezia GI Symptom: Negative for Diarrhea and Melena Associated Symptoms Associated Symptoms: Negative for Dysuria, Frequency, Hematuria and Urgency Narrative Narrative: 61-year-old female history of hypertension, cholecystectomy, thyroidectomy tubal ligation. States that since Sunday she has had bloating of her entire abdomen. With limited nausea and vomiting yesterday and today. No fever or chills. No melena. She has had bowel movements. She has passed gas. She denies any dysuria. She has had episodes like this before but they have resolved on their own. She is never had a bowel obstruction. She has no history of liver disease or ascites. Prior similar symptoms: Yes Recent Illness/Hospitalization: No PFSH PFS Medical History Anxiety Back pain GERD (gastroesophageal reflux disease) Hemorrhoids Hypertension Insomnia Lipoma of left shoulder Neck pain Obesity (BMI 30.0-34.9) Shortness of breath TIA (transient ischemic attack) Home Medications levothyroxine 125 mcg tablet 125 mcg PO DAILY 03/01/20 [History Last Taken Unknown] lisinopril 10 mg tablet 10 mg PO DAILY 03/01/20 [History Last Taken Unknown] meloxicam 15 mg tablet 15 mg PO DAILY 03/01/20 [History Last Taken Unknown] venlafaxine 75 mg capsule,extended release 24 hr 75 mg PO DAILY 03/01/20 [History Last Taken Unknown] atorvastatin 20 mg tablet 40 mg PO QHS tab 11/17/20 [History Last Taken Unknown] ondansetron 4 mg PO Q8H #10 tab 07/10/21 [Rx Last Taken Unknown] ropinirole 1 mg PO BID 07/10/21 [History Last Taken Unknown] trazodone 100 mg PO QHS 07/10/21 [History Last Taken Unknown] Allergy/AdvReac Type Severity Reaction Status Date / Time No Known Allergies Allergy Verified 12/06/20 08:18 Family History Mother Hypertension Thyroid disorder Father Hypertension Sister Thyroid disorder Surgical History history excision of lipoma left shoulder (~12/01/20) History of laparoscopic cholecystectomy History of thyroidectomy Social History Smoking Status: Current every day smoker tobacco type: e-cigarettes alcohol intake: never substance use type: does not use ROS ROS ED ROS Narrative Abdominal pain. Nausea and vomiting. Bloating. Review of Systems ROS Unobtainable: Denies due to encephalopathy Constitutional Constitutional ED: Denies chills or fever(s) ENT ENT ED: Denies ear pain or sore throat Cardiovascular Cardiovascular: Denies chest pain Respiratory/Chest Respiratory/Chest: Denies cough or dyspnea Gastrointestinal Gastrointestinal: Reports abdominal pain, nausea and vomiting; Denies constipation, diarrhea or melena Genitourinary Genitourinary ED: Denies dysuria or hematuria Musculoskeletal Musculoskeletal: Denies myalgias Integumentary Denies rash Neurologic Neurologic: Denies headache(s) Psychiatric Psychiatric: Denies depression Endocrine Endocrinology: Denies polyuria Hematologic/Lymphatic Hematologic/Lymphatic: Denies easy bruising Allergic/Immunologic Allergic/Immunologic ED: Denies urticaria EXAM Physical Exam Narrative Exam Narrative: 1-year-old female no acute distress. Vital signs stable afebrile. HEENT exam unremarkable. Moist remembers. Lungs clear to auscultation bilaterally. Heart regular rhythm no murmur. Abdomen soft. Distended. No peritoneal signs. Minimal tenderness. No hernia or mass. No tympany. Positive bowel sounds. No pulsatile mass. Moving all 4 extremities. No edema. Normal motor strength. Back nontender. Neurologic exam unremarkable no motor deficits. Const Vital Signs: 07/10/21 19:12 Temperature 97 F L Temperature Source Temporal Pulse Rate 86 Respiratory Rate 16 Blood Pressure 167/94 H Blood Pressure Mean 118 Pulse Ox 99 Positive well nourished, well developed and obese; Negative for cachectic, contractures or unkempt General Appearance ED: well developed and NAD; Negative for unkempt, cachectic, contractures or pallor Nutritional Appearance: obese; Negative for cachectic HEENT Reports moist mucous membranes normocephalic and atraumatic; Negative for trauma or tenderness Eyes PERRL and EOMs intact bilaterally Neck no lymphadenopathy, supple and no JVD General: Negative for tenderness Resp normal respiratory effort and clear to auscultation bilaterally Auscultation: Negative for rales, rhonchi or wheezes Cardio regular rate, regular rhythm, S1 normal heart sound, S2 normal heart sound and no murmurs GI no masses; Negative for non-tender or non-distended Inspection: abdominal distention Auscultation: normoactive bowel sounds; Negative for hyperactive bowel sounds or hypoactive bowel sounds Palpation: soft and tender; Negative for guarding, rigid or rebound tenderness present Back/Spine no CVA tenderness Extremity full ROM General Extremety ED: Negative for edema or tenderness General Extremity: Negative for edema Neuro moves all extremities Sensorium / Orientation: alert, oriented to person, oriented to place, oriented to time and orientation impaired; Negative for confused, lethargic or stuporous Motor Exam: strength 5/5 throughout Psych mental status grossly normal Appearance: Negative for unkempt Skin General Skin Exam: Negative for jaundice or pallor Lesions: no lesions Rashes: no rashes MDM MDM MDM Narrative Medical decision making narrative: 61-year-old female with abdominal bloating of nausea and vomiting. Rule out bowel obstruction versus other etiologies. CAT scan labs. She be treated with IV morphine and Zofran. Repeat exam patient is doing well at 10 PM. Abdomen is benign. We went over all of her test results. Specifically she will need further evaluation for the hepatic ductal dilatation and cystic structure in her pancreas she may need an abdominal MRI. I will refer her back to her primary care physician and or the local electric repair supervisor. Zofran prescription for nausea. Lab Data Attestation: I reviewed the patient's lab results. Lab results narrative: CBC shows white count of 9. Hemoglobin 11.9. Electrolytes gap of 5 normal creatinine. Normal liver enzymes. Normal amylase and lipase. Urinalysis is negative. No whites or red cells only rare bacteria and no nitrates. Labs: Laboratory Results - last 24 hr 07/10/21 07/10/21 07/10/21 19:30 19:39 19:39 WBC 9.1 RBC 4.05 L Hgb 11.9 L Hct 37.4 MCV 92.3 MCH 29.4 MCHC 31.8 L RDW Std Deviation 43.4 RDW Coeff of Vic 12.8 Plt Count 484 H MPV 9.7 Immature Gran % (Auto) 0.300 Neut % (Auto) 59.9 Lymph % (Auto) 27.3 [place] % (Auto) 10.1 H Eos % (Auto) 2.0 Baso % (Auto) 0.4 Absolute Neuts (auto) 5.5 Absolute Lymphs (auto) 2.49 Nucleated RBC % 0 Sodium 141 Potassium 4.1 Chloride 105 Carbon Dioxide 31.0 Anion Gap 5 BUN 18 Creatinine 0.98 Estim Creat Clear Calc 50.74 Est GFR (MDRD) Af Amer 74 Est GFR (MDRD) Non-Af 61 BUN/Creatinine Ratio 18.3 Glucose 102 Calcium 9.9 Total Bilirubin 0.30 AST 28 ALT 25 Alkaline Phosphatase 104 Total Protein 7.1 Albumin 3.4 Globulin 3.7 Albumin/Globulin Ratio 0.9 Amylase 26 Lipase 43 L Urine Color Yellow Urine Clarity Sl. Cloudy Urine pH 7.0 Ur Specific [place] 1.010 Urine Protein Negative Urine Glucose (UA) Normal Urine Ketones Negative Urine Occult Blood Negative Urine Nitrite Negative Urine Bilirubin Negative Urine Urobilinogen Normal Ur Leukocyte Esterase 100 H Urine RBC 0 SEEN Urine WBC 0-5 SEEN Ur Squamous Epith Cells 0 SEEN Urine Bacteria RARE Urine Mucus 0 SEEN Radiography Diagnostic Testing: Radiology Impression Abdomen/Pelvis CT 07/10/21 19:23 IMPRESSION: Intra and extrahepatic biliary ductal dilation. 12 mm fluid density uncinate process likely representing a cyst. Correlation with laboratory values to assess for evidence of bile duct obstruction. Consider MRCP and MRI pancreas. Small sliding hiatal hernia. Diverticulosis without diverticulitis. Atherosclerosis and degenerative changes spine as above. Electronically Signed: Román Arcos DO at 21:39 EDT Tel , Service support , ADDENDUM: 07/10/21 2152 IMPRESSION: Intra and extrahepatic biliary ductal dilation. 12 mm fluid density uncinate process likely representing a cyst. Correlation with laboratory values to assess for evidence of bile duct obstruction. Consider MRCP and MRI pancreas. Small sliding hiatal hernia. Diverticulosis without diverticulitis. Atherosclerosis and degenerative changes spine as above. N.B. : The above Results were Read Back by Román Arcos DO to Dr. Glen Remy MD, and understanding confirmed on 07/10/2021 21:45:27 (ET). Electronically Signed: Román Arcos DO at 21:39 EDT Tel , Service support , Discharge Plan Triage Chief Complaint: Nausea/Vomiting ED Provider: Chano Remy Dx/Rx/DC Orders Clinical Impression: Abdominal pain in female, Nausea & vomiting Instructions: Abdominal Pain, ED Vomiting (Adult) Prescriptions: New ondansetron 4 mg tablet,disintegrating 4 mg PO Q8H Qty: 10 RF: 0 No Action levothyroxine [Synthroid] 125 mcg tablet 125 mcg PO DAILY RF: 0 venlafaxine [Effexor XR] 75 mg capsule,extended release 24hr 75 mg PO DAILY RF: 0 meloxicam [Mobic] 15 mg tablet 15 mg PO DAILY RF: 0 lisinopril 10 mg tablet 10 mg PO DAILY RF: 0 atorvastatin 20 mg tablet 40 mg PO QHS RF: 0 ropinirole 1 mg tablet 1 mg PO BID RF: 0 trazodone 100 mg tablet 100 mg PO QHS RF: 0 Primary Care Provider: Tessie Wilkinson Referrals: Tessie Wilkinson MD [Primary Care Provider] - 1 Week Deny Reich DO [STAFF PHYSICIAN] - As soon as possible Activity Restrictions/Additional Instructions: Plenty of fluids and rest. Zofran as needed for nausea. Follow-up with either your primary care physician and/or Dr. Reich the electric repair supervisor for further evaluation. On your CAT scan they saw some dilation of your hepatic ducts and also a cystic structure in your pancreas that may need further evaluation by an MRI. Otherwise your labs were unremarkable. I do not have a specific cause for your pain. Disposition Disposition: Home, Self Care
[2021-07-10] MEDS: Ondansetron 4 MG/2 ML Vial IV ×2 (19:38→22:07)
[2021-07-10] MEDS: 0.9% Normal Saline 1,000 ML 1000 ML IV (19:38)
[2021-07-10] MEDS: Morphine 4 MG/ML Syringe IV (19:38)
[2021-07-10 19:42] LABS: Mucous, Urine 0 SEEN /hpf (<or=2+); Red Blood Cells-Urine 0 SEEN /hpf (0-5); Squamous Epithelial Cells - UA 0 SEEN /hpf (5-10)
[2021-07-10 19:44] LABS: Color, Urine Yellow (Yellow); Glucose, Dipstick Normal (Normal); Ketone-Dipstick Negative (Negative); Leukocyte Esterase-Dipstick 100 /ul (Negative); Nitrite-Dipstick Negative (Negative); Occult Blood-Urine Negative /ul (Negative); Protein-Dipstick Negative (Negative); Urine Bilirubin Dipstick Negative (Negative); Urine Clarity Sl. Cloudy (Clear); Urine Urobilinogen Normal (Normal)
[2021-07-10 19:47] LABS: Absolute Lymphocyte Count 2.49 X10^3/uL (0.83-4.51); Absolute Neutrophil Count 5.5 X10^3/uL (2.0-7.7); Basophil# 0.04 X10^3/uL; Basophil% 0.4 % (0-1); Eosinophil# 0.18 X10^3/uL; Hematocrit 37.4 % (37-47); Hemoglobin 11.9 g/dL (12.0-15.0); Lymphocyte # 2.49 X10^3/ul (0.83-4.51); Lymphocyte % 27.3 % (19-41); Mean Corp Hgb Conc 31.8 g/dL (32-36); Mean Corpuscular Hgb 29.4 pg (27.0-32.0); Mean Corpuscular Volume 92.3 fL (81-99); Mean Platelet Vol. 9.7 fl (6.2-12.0); Monocyte# 0.92 X10^3/uL; Monocyte% 10.1 % (0-10); NRBC Flagged by Analyzer 0 % (0-5); Neutrophil # 5.46 X10^3/uL (2.7-7.7); Neutrophil % 59.9 % (47-70); Platelet Count 484 K/mm3 (150-450); RBC Distribution Width CV 12.8 % (11.6-14.6); RBC Distribution Width SD 43.4 fl (35.1-43.9); Red Blood Count 4.05 M/mm3 (4.2-5.4); White Blood Count 9.1 K/mm3 (4.4-11.0)
[2021-07-10 19:53] LABS: Bacteria RARE /hpf (None Seen); White Blood Cells 0-5 SEEN /hpf (0-5)
[2021-07-10 20:04] LABS: ALB/GLOB Ratio 0.9 RATIO (0.9-2.4); AST(SGOT) 28 U/L (15-37); Alanine Aminotransfer ALT/SGPT 25 U/L (13-56); Albumin, Serum 3.4 g/dL (3.2-5.0); Alkaline Phosphatase 104 U/L (45-117); Amylase 26 U/L (25-115); Anion Gap 5 (5-15); BUN 18 mg/dL (7-18); BUN/Creat Ratio 18.3 RATIO (10-20); Calcium,Total 9.9 mg/dL (8.5-10.1); Chloride 105 mmol/L (98-107); Creatinine, Serum 0.98 mg/dL (0.55-1.02); EST Glomerular Filtration Rate 61 mL/min (>60); Est Glom Filt Rate - Afr Amer 74 mL/min (>60); Estimated Creatinine Clearance 50.74 ml/min; Globulin 3.7 g/dL (2.2-4.2); Glucose 102 mg/dL (74-106); Lipase 43 U/L (73-393); Potassium 4.1 mmol/L (3.5-5.1); Protein, Total 7.1 g/dL (6.4-8.2); Sodium Level 141 mmol/L (136-145)
[2021-07-10 22:15] VITALS: BP 172/86; PULSE 63; RESP 18; O2SAT 100
== END 2021-07-10 22:17 | disposition home or self-care (01) ==
PROVIDERS: Emergency Provider Emergency Medicine; PCP Family Medicine
DX: R10.9 Unspecified abdominal pain (principal); R11.2 Nausea with vomiting, unspecified; F41.9 Anxiety disorder, unspecified; K21.9 Gastro-esophageal reflux disease without esophagitis; I10 Essential (primary) hypertension; Z86.73 Personal history of transient ischemic attack (TIA), and cerebral infarction without residual deficits; Z79.899 Other long term (current) drug therapy; F17.290 Nicotine dependence, other tobacco product, uncomplicated; E66.9 Obesity, unspecified
CPT/HCPCS: 74177; 80053; 81001; 82150; 83690; 85025; 96361; 96374; 96375; 96376; 99283; J7030; Q9967; J2405

== ENCOUNTER → 2021-07-20 16:25 | Outpatient (CLI) | payer OTHER, SELFPAY ==
--- NOTE | 2021-07-20 16:45 | MRI_ITS ---
EXAM: MR ANGIOGRAPHY HEAD WITHOUT INTRAVENOUS CONTRAST CLINICAL INDICATION: BASILAR ARTERY ANEURYSM- follow-up TECHNIQUE: Routine [place]/brain 3D time of flight MR angiogram protocol was performed without intravenous contrast. This report was created using [email or web address] technology. COMPARISON: 11.24.19 cta head FINDINGS: RIGHT INTERNAL CAROTID ARTERY: No acute findings. No significant stenosis at the intracranial/visualized segments. No aneurysm. RIGHT ANTERIOR CEREBRAL ARTERY: Unremarkable. No significant stenosis at the visualized segments. Anterior communicating artery is present. No aneurysm. RIGHT MIDDLE CEREBRAL ARTERY: Unremarkable. No significant stenosis at the visualized segments. No aneurysm. RIGHT POSTERIOR CEREBRAL ARTERY: Unremarkable. No significant stenosis at the visualized segments. No aneurysm. RIGHT VERTEBRAL ARTERY: See below. LEFT INTERNAL CAROTID ARTERY: No acute findings. No significant stenosis at the intracranial/visualized segments. No aneurysm. LEFT ANTERIOR CEREBRAL ARTERY: Unremarkable. No significant stenosis at the visualized segments. Anterior communicating artery is present. No aneurysm. LEFT MIDDLE CEREBRAL ARTERY: Unremarkable. No significant stenosis at the visualized segments. No aneurysm. LEFT POSTERIOR CEREBRAL ARTERY: Nonvisualized left posterior communicating artery. No significant stenosis at the visualized segments. No aneurysm. LEFT VERTEBRAL ARTERY: See below. BASILAR ARTERY: There is stable diffuse prominence of the basilar artery at its origin and confluence of the vertebral arteries which may represent diffuse aneurysmal dilation. The basilar artery becomes normal in caliber at the level of the posterior cerebral arteries. No significant stenosis. OTHER VASCULATURE: No vascular malformation. MRI/MRA Head ONLY without Contrast IMPRESSION: There is stable diffuse prominence of the basilar artery at its origin and confluence of the vertebral arteries which may represent diffuse aneurysmal dilation. Electronically Signed: Darnell Chacon MD at 17:51 EDT , Service support ,
--- NOTE | 2021-07-20 17:30 | MRI_ITS ---
EXAM: MR HEAD WITHOUT INTRAVENOUS CONTRAST CLINICAL INDICATION: BASILAR ARTERY ANEURYSM- follow-up TECHNIQUE: Multiplanar and multisequence MR images of the brain were obtained without intravenous contrast. This report was created using [email or web address] report generation technology. COMPARISON: 11.24.19 cta head FINDINGS: BRAIN AND EXTRA-AXIAL SPACES: Unremarkable. No intra- or extra-axial hemorrhage. No evidence of acute infarct. No intracranial mass or mass effect. Mild microvascular ischemic changes. Posterior fossa structures are unremarkable. Ventricles are appropriate for age. No hydrocephalus. Basal cisterns are patent. No abnormal diffusion weighted signal abnormality. SELLA: Unremarkable. Normal sella turcica, pituitary gland, infundibular stalk, optic chiasm and hypothalamus. AUDITORY SYSTEM: Unremarkable. The internal auditory canals are patent. BONES/JOINTS: Unremarkable. No discrete lytic or blastic abnormalities. SINUSES: Unremarkable as visualized. Clear. MASTOID AIR CELLS: Unremarkable as visualized. Clear. ORBITS: Unremarkable as visualized. Both globes, extraocular muscles, optic nerves and retrobulbar fat appear unremarkable. VASCULATURE: There is stable diffuse prominence of the basilar artery at its origin and confluence of the vertebral arteries which may represent diffuse aneurysmal dilation. The basilar artery becomes normal in caliber at the level of the posterior cerebral arteries. Nonvisualized left posterior communicating artery. MRI/Brain without Contrast IMPRESSION: There is stable diffuse prominence of the basilar artery at its origin and confluence of the vertebral arteries which may represent diffuse aneurysmal dilation as noted as signal voids on the T2 weighted images. Mild microvascular ischemic changes. Electronically Signed: Darnell Chacon MD at 17:51 EDT , Service support ,
== END ==
LOC: MRI 16:25
PROVIDERS: PCP Family Medicine; Referring Provider Psychiatry & Neurology Neurology; Visit Provider Psychiatry & Neurology Neurology
DX: I67.1 Cerebral aneurysm, nonruptured (principal)
CPT/HCPCS: 70544; 70551

== ENCOUNTER → 2021-08-03 10:57 | Outpatient (CLI) | payer OTHER, SELFPAY ==
--- NOTE | 2021-08-03 11:03 | MRI_ITS ---
ACR Level 3 findings have been noted. An addendum which confirms receipt of the report will follow. STUDY: MR MRCP WITHOUT CONTRAST REASON FOR EXAM: Female, 61 years old. DILATED BILIARY DUCTS ABNORMAL CT TECHNIQUE: Standard MRCP technique was utilized. 3-D postprocessing images were reviewed. COMPARISON: None. FINDINGS: Gall Bladder: Surgically absent. Cystic duct: Normal with no demonstrated fixed filling defect. Intrahepatic ducts: Normal visualized intrahepatic ducts with no demonstrated fixed filling defect, dilation or stricture. Common hepatic duct: Dilated up to 1 cm with no demonstrated fixed filling defect, mass or stricture. Common bile duct: Dilated up to 1.1 cm with no demonstrated fixed filling defect, mass or stricture. Pancreatic duct: Normal with no demonstrated fixed filling defect, dilation or stricture. Other: There is a 1.2 cm T2 bright cystic lesion in the head of the pancreas. MRI/MRCP Abdomen without Contrast IMPRESSION: Dilatation of the extrahepatic biliary ducts most likely due to reservoir effect status post cholecystectomy. No obstructing mass, stone or stricture is visualized. Incidental 1.2 cm cystic lesion in the head of the pancreas without main pancreatic duct dilatation. 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 Per ACR guidelines, recommend follow-up MRCP in one year to assess for stability. Electronically Signed: Jame Geller MD at 18:10 EDT Tel , Service support ,
== END ==
LOC: MRI 10:58
PROVIDERS: PCP Family Medicine; Referring Provider Family Medicine; Visit Provider Family Medicine
DX: K83.8 Other specified diseases of biliary tract (principal)
CPT/HCPCS: 74181

== ENCOUNTER → 2021-08-15 10:14 | Outpatient (CLI) | payer OTHER, SELFPAY ==
--- NOTE | 2021-08-15 10:27 | RAD_ITS ---
STUDY: X-RAY - BILATERAL RIBS WITH CHEST REASON FOR EXAM: Female, 61 years old. Abdominal and chest pain. TECHNIQUE - RIBS: 6 view(s) of the ribs. TECHNIQUE - CHEST: Single frontal view of the chest. COMPARISON: None. FINDINGS - RIBS : Osteopenia. No displaced rib fracture. FINDINGS - CHEST: The lungs are clear and expanded. There is no demonstrated pleural abnormality. Normal size heart. Normal mediastinum and joslyn. Normal visualized pulmonary arteries. Normal visualized aortic arch and descending thoracic aorta. Normal visualized thoracic spine. Normal visualized ribs, clavicles, and shoulders. There is no demonstrated abnormality of the visualized soft tissue structures of the upper abdomen. RAD/Ribs Pa Min 4V w/PA Chest IMPRESSION: RIBS: Osteopenia with no displaced rib fracture. CHEST: Normal x-ray examination of the chest. Electronically Signed: Jeffry Ziegler MD at 14:10 EDT , Service support ,
[2021-08-15 10:41] LABS: Absolute Lymphocyte Count 1.74 X10^3/uL (0.83-4.51); Absolute Neutrophil Count 3.7 X10^3/uL (2.0-7.7); Basophil# 0.03 X10^3/uL; Basophil% 0.5 % (0-1); Eosinophil# 0.12 X10^3/uL; Eosinophils% 1.9 % (0-5); Hematocrit 38.7 % (37-47); Hemoglobin 12.3 g/dL (12.0-15.0); Lymphocyte # 1.74 X10^3/ul (0.83-4.51); Lymphocyte % 28.2 % (19-41); Mean Corp Hgb Conc 31.8 g/dL (32-36); Mean Corpuscular Hgb 29.2 pg (27.0-32.0); Mean Corpuscular Volume 91.9 fL (81-99); Mean Platelet Vol. 9.3 fl (6.2-12.0); Monocyte# 0.53 X10^3/uL; Monocyte% 8.6 % (0-10); NRBC Flagged by Analyzer 0 % (0-5); Neutrophil # 3.71 X10^3/uL (2.7-7.7); Neutrophil % 60.3 % (47-70); Platelet Count 400 K/mm3 (150-450); RBC Distribution Width SD 43.6 fl (35.1-43.9); Red Blood Count 4.21 M/mm3 (4.2-5.4); White Blood Count 6.2 K/mm3 (4.4-11.0)
[2021-08-15 11:08] LABS: Erythrocyte Sedimentation Rate 7 mm/hr (0-30)
[2021-08-15 11:20] LABS: Anion Gap 6 (5-15); BUN 28 mg/dL (7-18); BUN/Creat Ratio 27.5 RATIO (10-20); CRP < 2.90 mg/L (0.0-3.0); Calcium,Total 9.6 mg/dL (8.5-10.1); Chloride 106 mmol/L (98-107); Creatinine, Serum 1.02 mg/dL (0.55-1.02); EST Glomerular Filtration Rate 58 mL/min (>60); Est Glom Filt Rate - Afr Amer 70 mL/min (>60); Glucose 106 mg/dL (74-106); Sodium Level 139 mmol/L (136-145)
[2021-08-16 12:14] LABS: Carbohydrate Ag 19-9 2261 < 2 U/mL (0-35)
== END ==
LOC: LAB 10:17
PROVIDERS: PCP Family Medicine; Referring Provider Internal Medicine Gastroenterology; Visit Provider Internal Medicine Gastroenterology
DX: K59.00 Constipation, unspecified (principal); K86.2 Cyst of pancreas; R14.0 Abdominal distension (gaseous)
CPT/HCPCS: 36415; 71111; 80048; 85025; 85652; 86140; 86301

== ENCOUNTER 2021-09-01 07:23 | Day surgery (SDC) | payer OTHER, SELFPAY ==
[2021-09-01] VITALS (11 sets, daily range): BP systolic 83–109; BP diastolic 37–77; PULSE 56–81; RESP 16–62; TEMP 36–36.8; O2SAT 95–100; BMI 33.3
[2021-09-01] MEDS: Lactated Ringers 1,000 ML 15 ML IV (07:30)
--- NOTE | 2021-09-01 08:20 | HP.PCM_ITS ---
History and Physical Date of Admission: 09/01/21 HPI HPI Details: MANUEL LOVE, is a 61 F who presents to the office today for Still not having BM and is still using dulcolax 4 tabs 2-3 times a week, suppositories 2 times monthly and Miralax and lactulose TID on a daily basis. She is going for three days without a BM and on the third day she is using something to produce BM. Also having difficulty with bloating, nausea and vomiting ocuring every other night. Last visit 07/18/21 for evaluation of pancreatic cyst, bloating and constipation. Pancreatic Cyst ? MRCP ordered to evaluate hepatobilary and pancreatic ductal system. May be serous or mucinous. Possibly related undiagnosed pancreatitis. CA 19-9, EST and CRP ordered. Bloating ? secondary to constipation versus medication induced delayed gastric emptying. Short course of relgan done to aid with bloating and constipation. Constipation ? bowel prep performed to reset. Linzess started at 145mcg QD. Will increase to 290mcg if not effective. If still not effective will obtain sits marker test. Linzess, Amitiza and Trulance are not covered through her insurance. Lactulose 15mL QD with increase to TID as needed started. Lactulose makes her feel very gassy. MRCP performed 08/03/21 with noted common hepatic duct up to 10cm. Common bile duct dilated up to 1.1cm. No gallbladder noted. Other structures unremarkable. Extrahepatic biliary duct dilated most likely due to reservoir effect s/p cholecystectomy. No obstructing mass, stone or stricture. Additionally, a 1.2cm cystic lesion in head of pancreas without pancreatic duct dilation most likely a side branch intraductal papillary mucinous neoplasm. Repeat MCRP in one year to assess stability. CA19-9 ordered but not drawn. EST and CRP need ordered. Last colonoscopy performed three years prior. No history of EGD. ROS Const Constitutional: Positive for headache(s) ENT ENT: Positive for nasal congestion and headache(s) Gastro GI: Positive for bloating, constipation, heartburn, nausea/dyspepsia and vomiting Musc Musculoskeletal: Positive for joint pain, back pain, stiffness and Arthritis Neuro Neurology: Positive for headache(s) Quality Reporting Tobacco Screening ([facility] 138) Smoking Status: Current every day smoker Assessment and Plan Assessment and Plan (1) Constipation: Status: Acute Orders: Orders: Basic Metabolic Profile (BMP) Today CRP Today CBC W/Diff, Automated Today Erythrocyte Sed Rate Today Plan - Dr. Barclay Friend, DO: And check an ESR, CRP, CBC, BNP. Patient is actually doing a bit better. I will also continue PPI therapy currently. (2) Pancreatic cyst: Status: Acute Plan - Dr. Deny Reich, DO: Repeat the CAT scan in or MRI in approximately 4 months. Plan Details Other Medications: New: sodium,potassium,mag sulfates 17.5-3.13-1.6 gram (Suprep Bowel Prep Kit) DILUTE; drink full amount early evening before AND next morning at least 2 hr before procedure; follow w 960 mL water PO 354 mL 0RF linaclotide (Linzess) Take one cap by mouth thirty minutes prior to first meal 145 mcg PO DAILY 30 caps 1RF Discontinued: linaclotide (Linzess) Take one tab by mouth in the morning with food. Discontinued Reason: Duplicate Order 145 mcg PO DAILY 30 caps 1RF I have re-examined the patient. There are no clinical changes since date of exam.
--- NOTE | 2021-09-01 08:30 | IMM_PTH ---
PATIENT: MANUEL LOVE LOC: EN U#:[id number] AGE/SX: 61/F ROOM: RE09/01/[address]: Dr. Deny Reich DO : 1960 BED: DIS: 09/01/2021 SPEC #: [id number] RECD: 09/01/21 12:45 STATUS: LIZETH REAishwarya #: [id number] DON: 09/01/21 08:[address]: Deny Reich DEPT: IMMUNOHISTOCHEMISTRY RECD BY: Ema Maki ENTERED: 09/01/21 12:49 SP TYPE: IMMUNO OTHR DR: Dr. Tessie Wilkinson MD Tissues: B - Stomach, NOS Procedures: H Pylori (initial) PHYSICIAN & INSTITUTION [place] [id number] SPECIMEN INFORMATION: Tissue Source: B ? Gastric antrum, biopsy Clinical Info: Constipation, pancreatic cyst Specimen Number: [id number] CPT code: 81274 METHODOLOGY: Deparaffinized sections of prefer/formalin-fixed tissue or PAP/DQ stained slides are incubated with monoclonal/polyclonal antibodies/oligonucleotide probes. Localization is made via biotin free immunoperoxidase method. Appropriate controls are performed and reacted as expected. Results on target cell population are indicated in the following table: RESULTS: ANTIBODY / CLONE RESULT Block B H Pylori (polyclonal) negative These tests were developed and their performance characteristics determined by [facility]. They may not have been cleared or approved by the U.S. Food and Drug Administration. The FDA has determined that such clearance or approval is not necessary. INTERPRETATION: B. Gastric antrum, biopsy: Negative for Helicobacter pylori organisms. AM:carolynn 09/02/2021
--- NOTE | 2021-09-01 08:30 | EGD_PTH ---
PATIENT: MANUEL LOVE LOC: EN U#:[id number] AGE/SX: 61/F ROOM: RE09/01/[address]: Dr. Deny Recih DO : 1960 BED: DIS: 09/01/2021 SPEC #: [id number] RECD: 09/01/21 10:57 STATUS: LIZETH ALICIA #: [id number] DON: 09/01/21 08:[address]: Deny Reich DEPT: SURGICAL PATHOLOGY RECD BY: Michaelle Stallworth ENTERED: 09/01/21 11:45 SP TYPE: EGD BIOPSY OT DR: Dr. Tessie Wilkinson MD Tissues: A - Duodenum, NOS B - Gastric mucous membrane C - Esophagus, NOS D - Cecum, NOS E - COLON BIOPSY Procedures: Special Stain Group II Surgery Specimen Level IV Alcian Blue/PAS (control) HEADER OPERATION: Colonoscopy, EGD ([facility] [place]) PRE-OP DIAGNOSIS: Constipation, pancreatic cyst TISSUE SUBMITTED: A ? Duodenum biopsy, B ? Gastric antrum biopsy for H. pylori and pathology, C ? Distal esophagus biopsy, D ? Cecal polyp, E ? Splenic flexure biopsy MICROSCOPIC DIAGNOSIS A. Duodenum, biopsy: No pathologic change. B. Gastric antrum, biopsy: Chronic gastritis. See comment. C. Distal esophagus, biopsy: Gastroesophageal junctional mucosa with mild chronic. No evidence of goblet cell metaplasia. See comment. D. Cecal polyp, biopsy: Fragments of tubular adenoma. Fecal debris. E. Colonic polyp at splenic flexure, biopsy: Polypoid fragments of benign colonic mucosa. AM:carolynn 09/02/2021 COMMENT B. The results of immunohistochemistry for Helicobacter pylori will be reported separately ([id number]). C. Alcian blue/PAS stain with matched control supports the above diagnosis. MICROSCOPIC DESCRIPTION Slides are reviewed. GROSS DESCRIPTION A - Received in fixative is one container labeled with the patient's name and designated duodenum biopsy. The specimen consists of one irregular fragment of light sharma soft tissue that measures 0.5 x 0.2 x 0.1 cm. The specimen is totally submitted in one cassette. B - Received in fixative is one container labeled with the patient's name and designated gastric antrum biopsy. The specimen consists of multiple irregular fragments of light sharma soft tissue that in aggregate measure 1.5 x 0.3 x 0.1 cm. The specimen is totally submitted in one cassette. C - Received in fixative is one container labeled with the patient's name and designated distal esophagus biopsy. The specimen consists of multiple irregular fragments of light sharma soft tissue that in aggregate measure 1 x 0.3 x 0.1 cm. The specimen is totally submitted in one cassette. D - Received in fixative is one container labeled with the patient's name and designated cecal polyp. The specimen consists of multiple irregular fragments of sharma soft tissue mixed with fecal material that in aggregate measure 2.5 x 1 x 0.3 cm. The specimen is totally submitted in one cassette. E - Received in fixative is one container labeled with the patient's name and designated splenic flexure biopsy. The specimen consists of multiple irregular fragments of light sharma soft tissue that in aggregate measure 1 x 0.3 x 0.1 cm. The specimen is totally submitted in one cassette. / SJ:rg 09/01/21 TC:3 CPT: 55754 x5, 87318
--- NOTE | 2021-09-01 08:48 | OP.EGD_ITS ---
Patient Name: Marquita Acevedo Procedure Date: 09/01/2021 8:26 AM Date of : 1960 Age: 61 Procedure: Upper GI endoscopy Indications: Epigastric abdominal pain, Heartburn Providers: Deny Reich DO Medicines: See the Anesthesia note for documentation of the administered medications Patient Profile: This is a 61 year old female. Refer to note in patient chart for documentation of history and physical. Patient has symptoms. She is status post laparoscopic cholecystectomy within the past several years. Complications: No immediate complications. Procedure: Pre-Anesthesia Assessment: - Prior to the procedure, a History and Physical was performed, and patient medications and allergies were reviewed. The patient is competent. The risks and benefits of the procedure and the sedation options and risks were discussed with the patient. All questions were answered and informed consent was obtained. Patient identification and proposed procedure were verified by the physician in the pre-procedure area. Mental Status Examination: alert and oriented. Airway Examination: normal oropharyngeal airway and neck mobility. Respiratory Examination: clear to auscultation. CV Examination: normal. Prophylactic Antibiotics: The patient does not require prophylactic antibiotics. Prior Anticoagulants: The patient has taken no previous anticoagulant or antiplatelet agents. ASA Grade Assessment: II - A patient with mild systemic disease. After reviewing the risks and benefits, the patient was deemed in satisfactory condition to undergo the procedure. The anesthesia plan was to use moderate sedation / analgesia (conscious sedation). Immediately prior to administration of medications, the patient was re-assessed for adequacy to receive sedatives. The heart rate, respiratory rate, oxygen saturations, blood pressure, adequacy of pulmonary ventilation, and response to care were monitored throughout the procedure. The physical status of the patient was re-assessed after the procedure. After obtaining informed consent, the endoscope was passed under direct vision. Throughout the procedure, the patient's blood pressure, pulse, and oxygen saturations were monitored continuously. The gastroscope was introduced through the mouth, and advanced to the second part of duodenum. The upper GI endoscopy was accomplished without difficulty. The patient tolerated the procedure well. Moderate Sedation: Moderate (conscious) sedation was administered by the endoscopy nurse and supervised by the endoscopist. The patient's oxygen saturation, heart rate, blood pressure and response to care were monitored. Total physician intraservice time was 15 minutes. Scope In: 8:34:36 AM Scope Out: 8:41:52 AM Total Procedure Duration Time 0 hours 7 minutes 16 seconds Findings: LA Grade C (one or more mucosal breaks continuous between tops of 2 or more mucosal folds, less than 75% circumference) esophagitis with no bleeding was found 34 to 39 cm from the incisors. Biopsies were taken with a cold forceps for histology. Verification of patient identification for the specimen was done. Estimated blood loss was minimal. A medium-sized hiatal hernia was present. Diffuse moderately erythematous mucosa without bleeding was found in the gastric antrum. Biopsies were taken with a cold forceps for histology. Verification of patient identification for the specimen was done. Estimated blood loss was minimal. Scattered mild inflammation characterized by congestion (edema) and erythema was found in the gastric antrum. Biopsies were taken with a cold forceps for histology. Verification of patient identification for the specimen was done. Estimated blood loss was minimal. No gross lesions were noted in the second portion of the duodenum. Biopsies were taken with a cold forceps for histology. Verification of patient identification for the specimen was done. There is a 3 cm gastric inlet patch seen in the proximal esophagus. Bilious fluid was found in the stomach. Impression: - LA Grade C reflux esophagitis. Rule out Hill's esophagus. Biopsied. - Medium-sized hiatal hernia. - Erythematous mucosa in the antrum. Biopsied. - Gastritis. Biopsied. - No gross lesions in the second portion of the duodenum. Biopsied. Recommendation: - Discharge patient to home. - Resume previous diet. - Continue present medications. - Await pathology results. - Repeat upper endoscopy in 1 year for surveillance. - Return to GI office in 1 week. Procedure Code(s): --- Professional --- 42468, Esophagogastroduodenoscopy, flexible, transoral; with biopsy, single or multiple G0500, Moderate sedation services provided by the same physician or other qualified health resident care supervisor performing a gastrointestinal endoscopic service that sedation supports, requiring the presence of an independent trained observer to assist in the monitoring of the patient's level of consciousness and physiological status; initial 15 minutes of intra-service time; patient age 5 years or older (additional time may be reported with 24106, as appropriate) CPT copyright 2017 [employer]. All rights reserved. The codes documented in this report are preliminary and upon technical professional review may be revised to meet current compliance requirements. Deny Reich DO 09/01/2021 8:48:36 AM This report has been signed electronically. Number of Addenda: 1 Note Initiated On: 09/01/2021 8:26 AM Addendum Number: 1 Addendum Date: 06/16/2022 6:26:44 AM MAC was used instead of moderate sedation for this patient. Deny Reich DO 06/16/2022 6:26:55 AM This report has been signed electronically.
--- NOTE | 2021-09-01 08:49 | OP.CCLET_ITS ---
06/16/2022 Tessie Wilkinson [address] [place] [address] Re : Upper GI endoscopy procedure for Marquita Acevedo Dear Dr. Wilkinson This procedure was performed on August. My impressions and recommendations are as follows: Impressions : - LA Grade C reflux esophagitis. Rule out Hill's esophagus. Biopsied. - Medium-sized hiatal hernia. - Erythematous mucosa in the antrum. Biopsied. - Gastritis. Biopsied. - No gross lesions in the second portion of the duodenum. Biopsied. Recommendations : - Discharge patient to home. - Resume previous diet. - Continue present medications. - Await pathology results. - Repeat upper endoscopy in 1 year for surveillance. - Return to GI office in 1 week. My findings are described in the full procedure note, which is enclosed. If I can be of further assistance, please feel free to contact me at . Sincerely, Deny Reich, 09/01/2021 8:48:36 AM This report has been signed electronically.
--- NOTE | 2021-09-01 09:22 | OP.CCLET_ITS ---
06/16/2022 Tessie Wilkinson [place] [address] [place] [address] Re : Colonoscopy procedure for Marquita Acevedo Dear Dr. Wilkinson This procedure was performed on August. My impressions and recommendations are as follows: Impressions : - Moderate diverticulosis in the sigmoid colon, in the descending colon and at the splenic flexure. There was evidence of an impacted diverticulum. - Two 1 to 2 mm polyps in the cecum, removed with a hot snare. Resected and retrieved. - Congested mucosa in the sigmoid colon. Biopsied. Recommendations : - Discharge patient to home. - Resume previous diet. - Continue present medications. - Await pathology results. - Repeat colonoscopy in 5 years for surveillance. - Return to GI office in 2 weeks. My findings are described in the full procedure note, which is enclosed. If I can be of further assistance, please feel free to contact me at . Sincerely, Deny Reich, 09/01/2021 9:21:41 AM This report has been signed electronically.
--- NOTE | 2021-09-01 09:22 | OP.COLON_ITS ---
Patient Name: Marquita Acevedo Procedure Date: 09/01/2021 8:44 AM Date of : 1960 Age: 61 Procedure: Colonoscopy Indications: Generalized abdominal pain, Change in bowel habits, Change in stool caliber Providers: Deny Reich DO Medicines: See the Anesthesia note for documentation of the administered medications Patient Profile: This is a 61 year old female. Refer to note in patient chart for documentation of history and physical. Patient has symptoms. She is status post laparoscopic cholecystectomy within the past several years. She is status post colonoscopy (normal) within the past several years. She is status post laparoscopic cholecystectomy within the past several years. Last Colonoscopy: several years ago. Complications: No immediate complications. Procedure: Pre-Anesthesia Assessment: - Prior to the procedure, a History and Physical was performed, and patient medications and allergies were reviewed. The patient is competent. The risks and benefits of the procedure and the sedation options and risks were discussed with the patient. All questions were answered and informed consent was obtained. Patient identification and proposed procedure were verified by the physician in the pre-procedure area. Mental Status Examination: alert and oriented. Airway Examination: normal oropharyngeal airway and neck mobility. Respiratory Examination: clear to auscultation. CV Examination: normal. Prophylactic Antibiotics: The patient does not require prophylactic antibiotics. Prior Anticoagulants: The patient has taken no previous anticoagulant or antiplatelet agents. ASA Grade Assessment: II - A patient with mild systemic disease. After reviewing the risks and benefits, the patient was deemed in satisfactory condition to undergo the procedure. The anesthesia plan was to use moderate sedation / analgesia (conscious sedation). Immediately prior to administration of medications, the patient was re-assessed for adequacy to receive sedatives. The heart rate, respiratory rate, oxygen saturations, blood pressure, adequacy of pulmonary ventilation, and response to care were monitored throughout the procedure. The physical status of the patient was re-assessed after the procedure. After I obtained informed consent, the scope was passed under direct vision. Throughout the procedure, the patient's blood pressure, pulse, and oxygen saturations were monitored continuously. The pediatric colonoscope was introduced through the anus and advanced to the cecum, identified by appendiceal orifice and ileocecal valve. The colonoscopy was performed without difficulty. The patient tolerated the procedure well. The quality of the bowel preparation was adequate. Moderate Sedation: Moderate (conscious) sedation was administered by the endoscopy nurse and supervised by the endoscopist. The patient's oxygen saturation, heart rate, blood pressure and response to care were monitored. Total physician intraservice time was 15 minutes. Scope In: 8:51:07 AM Scope Withdrawal Time 0 hours 15 minutes 30 seconds Scope Out: 9:13:01 AM Total Procedure Duration Time 0 hours 21 minutes 54 seconds Findings: The perianal and digital rectal examinations were normal. Multiple small and large-mouthed diverticula were found in the sigmoid colon, descending colon and splenic flexure. There was evidence of an impacted diverticulum. Two sessile polyps were found in the cecum. The polyps were 1 to 2 mm in size. These polyps were removed with a hot snare. Resection and retrieval were complete. Verification of patient identification for the specimen was done. Estimated blood loss was minimal. An area of moderately congested mucosa was found in the sigmoid colon. Biopsies were taken with a cold forceps for histology. Impression: - Moderate diverticulosis in the sigmoid colon, in the descending colon and at the splenic flexure. There was evidence of an impacted diverticulum. - Two 1 to 2 mm polyps in the cecum, removed with a hot snare. Resected and retrieved. - Congested mucosa in the sigmoid colon. Biopsied. Recommendation: - Discharge patient to home. - Resume previous diet. - Continue present medications. - Await pathology results. - Repeat colonoscopy in 5 years for surveillance. - Return to GI office in 2 weeks. Procedure Code(s): --- Professional --- 23205, 59, Colonoscopy, flexible; with removal of tumor(s), polyp(s), or other lesion(s) by snare technique 65798, 59, Colonoscopy, flexible; with biopsy, single or multiple G0500, Moderate sedation services provided by the same physician or other qualified health prompt care rn performing a gastrointestinal endoscopic service that sedation supports, requiring the presence of an independent trained observer to assist in the monitoring of the patient's level of consciousness and physiological status; initial 15 minutes of intra-service time; patient age 5 years or older (additional time may be reported with 99033, as appropriate) CPT copyright 2017 [employer]. All rights reserved. The codes documented in this report are preliminary and upon hat and cap sewer review may be revised to meet current compliance requirements. Deny Reich DO 09/01/2021 9:21:41 AM This report has been signed electronically. Number of Addenda: 1 Note Initiated On: 09/01/2021 8:44 AM Addendum Number: 1 Addendum Date: 06/16/2022 6:27:08 AM MAC was used instead of moderate sedation for this patient. Deny Reich DO 06/16/2022 6:27:15 AM This report has been signed electronically.
[2021-09-01] MEDS: Acetaminophen 500 MG Tablet 1000 MG PO (09:56)
== END 2021-09-01 10:21 | disposition home or self-care (01) ==
LOC: EN 07:25 → AC 07:26
PROVIDERS: PCP Family Medicine; Referring Provider Family Medicine; Visit Provider Internal Medicine Gastroenterology
PROC: 0DJD8ZZ Inspection of Lower Intestinal Tract, Via Natural or Artificial Opening Endoscopic (ICD-10-PCS; CPT 45378; principal; 2021-09-01 08:25)
DX: K29.50 Unspecified chronic gastritis without bleeding (principal); K21.00 Gastro-esophageal reflux disease with esophagitis, without bleeding; D12.0 Benign neoplasm of cecum; K57.30 Diverticulosis of large intestine without perforation or abscess without bleeding; K44.9 Diaphragmatic hernia without obstruction or gangrene; F17.200 Nicotine dependence, unspecified, uncomplicated; F41.9 Anxiety disorder, unspecified; K21.9 Gastro-esophageal reflux disease without esophagitis; M19.90 Unspecified osteoarthritis, unspecified site; I10 Essential (primary) hypertension; E07.9 Disorder of thyroid, unspecified; Z79.899 Other long term (current) drug therapy
CPT/HCPCS: 43239; 45380; 88305; 88313; 88342; J7120; J2405

== ENCOUNTER 2021-10-18 14:18 | Outpatient (CLI) | payer OTHER, SELFPAY ==
--- NOTE | 2021-10-18 14:34 | BD_ITS ---
STUDY: DUAL ENERGY X-RAY ABSORPTIOMETRY / DXA REASON FOR EXAM: Female, 61 years old. Evaluate bone density TECHNIQUE: Bone Mineral Density (BMD) measurements of lumbar spine and bilateral hips were obtained. COMPARISON: None. FINDINGS: Lumbar Spine (L1-L4): g/cm2 (0.825) / T-score (-1.4) / Z-score (0.2) Findings are suggestive of osteopenia with a low fracture risk. Left Femur Total: g/cm2 (0.826) / T-score (-1.0) / Z-score (0.2) Left Femoral Neck: g/cm2 (0.656) / T-score (-1.7) / Z-score (-0.3) Right Femur Total: g/cm2 (0.758) / T-score (-1.5) / Z-score (-0.4) Right Femoral Neck: g/cm2 (0.682) / T-score (-1.5) / Z-score (-0.1) BD/Dexa Bone Density Study IMPRESSION: The patient is considered osteopenic as outlined below according to World [employer] Organization (WHO) criteria with a moderate fracture risk. Reference Information: The T-score is the number of standard deviations above or below the standard which is normal for young adults at their peak bone mineral density. The World Health Organization (WHO) interprets the T-scores as follows: Above -1 Normal bone density Between -1 and -2.5 Osteopenia Equal to / or below -2.5 Osteoporosis As a practical clinical guideline, osteopenia may be graded as follows: Mild -1 through -1.5 Moderate -1.6 through -2.0 Severe -2.1 through -2.4 The Z-score is the number of standard deviations above or below age-matched controls. A Z-score of less than -1.5 would be considered abnormal. References: 1. NIH Osteoporosis and Related Bone Diseases www osteo.org 2. International Society for Clinical Densitometry www iscd.org 3. National Osteoporosis Foundation www nof.org Electronically Signed: Kvng Gutiérrez MD at 14:53 EST , Service support ,
== END 2021-10-18 23:59 | disposition short-term general hospital (02) ==
LOC: OPBD 14:19
PROVIDERS: PCP Family Medicine; Visit Provider Internal Medicine Gastroenterology
DX: M81.0 Age-related osteoporosis without current pathological fracture (principal); M85.80 Other specified disorders of bone density and structure, unspecified site
CPT/HCPCS: 77080

== ENCOUNTER → 2022-11-06 | Outpatient (CLI) | payer OTHER, SELFPAY ==
[2022-11-06 10:23] LABS: Absolute Lymphocyte Count 4.12 X10^3/uL (0.83-4.51); Absolute Neutrophil Count 3.5 X10^3/uL (2.0-7.7); Basophil# 0.04 X10^3/uL; Basophil% 0.5 % (0-1); Eosinophil# 0.07 X10^3/uL; Eosinophils% 0.8 % (0-5); Hematocrit 38.9 % (37-47); Hemoglobin 12.4 g/dL (12.0-15.0); Lymphocyte # 4.12 X10^3/ul (0.83-4.51); Lymphocyte % 49.1 % (19-41); Mean Corp Hgb Conc 31.9 g/dL (32-36); Mean Corpuscular Hgb 30.2 pg (27.0-32.0); Mean Corpuscular Volume 94.9 fL (81-99); Monocyte# 0.65 X10^3/uL; Monocyte% 7.7 % (0-10); NRBC Flagged by Analyzer 0 % (0-5); Neutrophil # 3.48 X10^3/uL (2.7-7.7); Neutrophil % 41.5 % (47-70); Platelet Count 344 K/mm3 (150-450); RBC Distribution Width CV 12.5 % (11.6-14.6); RBC Distribution Width SD 43.4 fl (35.1-43.9); White Blood Count 8.4 K/mm3 (4.4-11.0)
[2022-11-06 10:59] LABS: Vitamin B12 1266 pg/mL (211-911)
[2022-11-06 11:20] LABS: ALB/GLOB Ratio 1.3 RATIO (0.9-2.4); AST(SGOT) 8 U/L (15-37); Alanine Aminotransfer ALT/SGPT 18 U/L (13-56); Albumin, Serum 3.8 g/dL (3.2-5.0); Alkaline Phosphatase 80 U/L (45-117); Anion Gap 4 (5-15); BUN 25 mg/dL (7-18); BUN/Creat Ratio 26.1 RATIO (10-20); Calcium,Total 9.8 mg/dL (8.5-10.1); Chloride 110 mmol/L (98-107); Cholesterol 149 mg/dL (200); Creatinine, Serum 0.96 mg/dL (0.55-1.02); EST Glomerular Filtration Rate 62 mL/min (>60); Est Glom Filt Rate - Afr Amer 75 mL/min (>60); Ferritin 61 ng/mL (8-252); Glucose 95 mg/dL (74-106); High Density Lipoprotein 58 mg/dL; Iron 95 ug/dL (50-170); Iron Binding Capacity,Total 290 ug/dL (250-450); Potassium 4.3 mmol/L (3.5-5.1); Protein, Total 6.8 g/dL (6.4-8.2); Sodium Level 141 mmol/L (136-145); Triglycerides 146 mg/dL; Very Low Density Lipoprotein 29 mg/dL (5-40)
== END | disposition home or self-care (01) ==
LOC: LAB 09:41
PROVIDERS: PCP Family Medicine; Referring Provider Family Medicine; Visit Provider Family Medicine
DX: Z00.00 Encounter for general adult medical examination without abnormal findings (principal); D64.9 Anemia, unspecified; I10 Essential (primary) hypertension; E78.00 Pure hypercholesterolemia, unspecified
CPT/HCPCS: 36415; 80053; 80061; 82607; 82728; 82746; 83540; 83550; 85025

== ENCOUNTER → 2022-11-17 | Outpatient (CLI) | payer OTHER, SELFPAY ==
--- NOTE | 2022-11-17 06:40 | MRI_ITS ---
STUDY: MRI LUMBAR SPINE WITHOUT CONTRAST REASON FOR EXAM: Female, 62 years old. SPINAL STENOSIS TECHNIQUE: Standardized fat and water weighted pulse sequences were obtained in the sagittal and axial planes. COMPARISON: None FINDINGS: T10-T11: (Sagittal only). Normal endplates. Moderate disc space height narrowing. Minimal ventral extradural defect due to small posterior marginal spurs and tiny posterior bulging annulus. Normal central canal. Suspicious moderate stenosis of the bilateral intervertebral neural foramina due to suspicious moderately pronounced left ureter facet arthropathy and moderate right degenerative facet arthropathy in the sagittal views. T11-T12: (Sagittal only). Normal endplates. Mild disc space height narrowing but normal disc hydration and morphology. Normal central canal and bilateral intervertebral neural foramina. T12-L1: (Sagittal only). Normal endplates. Normal disc height, hydration and morphology. No ventral extradural defect. Normal central canal and bilateral intervertebral neural foramina. Normal lumbar lordosis. There is no substantial scoliosis. Normal conus medullaris that terminates at the upper L1 vertebral body level. L1-2: Normal endplates. Normal disc height, hydration and morphology. Normal bilateral facet joints. Normal central canal and bilateral lateral recesses. Normal bilateral intervertebral neural foramina. L2-3: Moderate Modic type I degenerative vertebral marrow edema underneath the right half of the vertebral endplates. Moderate disc space height narrowing, increasing to the right. Mild ventral extradural defect due to posterior bulging annulus. Mild asymmetric degenerative facet arthropathy. Mild dorsal epidural lipomatosis. Normal central canal and bilateral lateral recesses. Moderate stenosis of the right intervertebral neural foramen. Normal left intervertebral neural foramen. L3-4: Normal endplates. Mild disc space height narrowing. Minimal ventral extradural defect due to small posterior bulging annulus. Mild to moderate right degenerative facet arthropathy. Mild left degenerative facet arthropathy. Mild dorsal epidural lipomatosis. Moderately pronounced central canal stenosis with an AP canal diameter of 6 mm. Normal bilateral lateral recesses. Normal bilateral intervertebral neural foramina. L4-5: Mild Modic type II degenerative vertebral marrow fat infiltration underneath the vertebral endplates. Pronounced disc space height narrowing. Mild asymmetric degenerative facet arthropathy. Mild ventral extradural defect due to posterior marginal spurs, eccentric to the left. This is causing moderate stenosis of the left lateral recess. Normal right lateral recess. Moderate asymmetric central canal stenosis with an AP canal diameter of 7.6 mm. Mild stenosis of the bilateral intervertebral neural foramina. L5-S1: Normal endplates. Mild disc space height narrowing. Small posterior bulging annulus without ventral extradural defect due to presence of minimal ventral epidural fat. Moderately pronounced left degenerative facet arthropathy with fluid inside the facet joint. Moderate right degenerative facet arthropathy. Moderate central canal stenosis with an AP canal diameter 7 mm. Normal bilateral lateral recesses. Moderate stenosis of the bilateral intervertebral neural foramina. Normal visualized sacral ala. Normal visualized paraspinous soft tissue structures. MRI/Spine Lumbar (Routine) IMPRESSION: 1. Moderately pronounced central canal stenosis at L3-L4 disc space level with an AP canal diameter of 6 mm and small posterior bulging annulus. 2. Moderate asymmetric central canal stenosis at L4-L5 disc space level with an AP canal diameter 7.6 mm, moderate stenosis of the left lateral recess due to bone spurs and mild stenosis of the bilateral intervertebral neural foramina. 3. Moderate central canal stenosis at L5-S1 disc space level with an AP canal diameter 7 mm secondary to developmentally short pedicles, moderately pronounced left iterative facet arthropathy, moderate right degenerative facet arthropathy and moderate stenosis of the bilateral intervertebral neural foramina. 4. Moderate right-sided L2-L3 intervertebral osteochondritis (Modic type I), small posterior bulging annulus and moderate stenosis of the right intervertebral neural foramen. 5. Suspicious moderate stenosis of the bilateral T10-T11 intervertebral neural foramina due to suspicious moderately pronounced left ureter facet arthropathy and moderate right degenerative facet arthropathy in the sagittal views. No axial views were performed. 6. No MRI evidence of lumbar disc extrusion or disc protrusion. Electronically Signed: Kwesi Bruce MD at 8:35 EST ,
== END | disposition home or self-care (01) ==
PROVIDERS: PCP Family Medicine; Referring Provider Orthopaedic Surgery; Visit Provider Orthopaedic Surgery
DX: M48.061 Spinal stenosis, lumbar region without neurogenic claudication (principal); M47.26 Other spondylosis with radiculopathy, lumbar region; M51.36 Other intervertebral disc degeneration, lumbar region
CPT/HCPCS: 72148

== ENCOUNTER → 2024-09-05 | Outpatient (CLI) | payer OTHER, SELFPAY ==
[2024-09-15 20:53] LABS: HPV Reflexed? NOT INDICATED
== END | disposition home or self-care (01) ==
LOC: LABSPEC 10:47
PROVIDERS: PCP Family Medicine; Referring Provider Family Medicine; Visit Provider Family Medicine
DX: Z12.4 Encounter for screening for malignant neoplasm of cervix (principal)
CPT/HCPCS: 88175; G0145

== ENCOUNTER → 2024-10-22 | Outpatient (CLI) | payer MEDICARE, SELFPAY ==
--- NOTE | 2024-10-22 12:58 | NEURO ---
NCS and/or EMG Patient Report Ordering Doctor: Eric Tripp DATE OF SERVICE: 10/22/24 Marquita presents for electrodiagnostic testing of the upper limbs. She reports numbness and tingling in both hands. Electrodiagnostic findings: Right median motor nerve demonstrates prolonged latency with normal amplitude and reduced conduction velocity. Left median motor nerve demonstrates prolonged latency with normal amplitude and conduction velocity. Ulnar motor response is within normal limits bilaterally. Prolonged sensory latency at the wrist bilaterally. Needle EMG testing was performed upper limbs. All muscles tested showed no evidence of denervation with normal motor unit action potentials. Electrodiagnostic impression: This is an abnormal study. 1. Electrodiagnostic findings suggestive of bilateral median mononeuropathy. This is consistent with a moderate to advanced right carpal tunnel syndrome and a mild left carpal tunnel syndrome. Multi Select Codes Neurology Neurology Interp Codes: 82427-62 Musc test done w/n test comp (interp) (2) and 06509-73 Nrv cndj test 9-10 studies (interp)
== END | disposition home or self-care (01) ==
PROVIDERS: PCP Family Medicine; Referring Provider Orthopaedic Surgery Sports Medicine; Visit Provider Orthopaedic Surgery Sports Medicine
DX: G56.03 Carpal tunnel syndrome, bilateral upper limbs (principal)
CPT/HCPCS: 95886; 95911

== ENCOUNTER → 2024-10-30 | Outpatient (CLI) | payer MEDICARE, OTHER, SELFPAY ==
--- NOTE | 2024-10-30 11:25 | US_ITS ---
STUDY: SUPERFICIAL ULTRASOUND - LEFT WRIST. REASON FOR EXAM: Female, 64 years old. Pain -- possible cyst dorsum of the wrist TECHNIQUE: A superficial ultrasound was performed with real-time and static sahni-scale imaging. COMPARISON: None. FINDINGS: The dorsal aspect of the wrist at the level of the palpable abnormality was examined. No soft tissue abnormality is seen. US/Ext Non Vasc Limited/Soft Tiss IMPRESSION: No soft tissue abnormality is seen. Electronically Signed: Kvng Gutiérrez MD at 9:07 EST ,
== END | disposition home or self-care (01) ==
LOC: US 11:22
PROVIDERS: PCP Family Medicine; Referring Provider Family Medicine; Visit Provider Orthopaedic Surgery Sports Medicine
DX: L72.9 Follicular cyst of the skin and subcutaneous tissue, unspecified (principal)
CPT/HCPCS: 76882